=== PATIENT | male | born 1945 | race Caucasian/White ===

== ENCOUNTER 2017-11-12 11:30 | Outpatient (RCR) | payer SELFPAY | END 2017-11-13 23:59 | disposition home or self-care (01) | LOC: CR 11:30 | PROVIDERS: PCP Family Medicine; Visit Provider Family Medicine | DX: Z51.89 Encounter for other specified aftercare (principal) ==

== ENCOUNTER 2017-12-10 07:00 | Outpatient (RCR) | payer SELFPAY | END 2017-12-13 23:59 | disposition home or self-care (01) | LOC: CR 07:00 | PROVIDERS: PCP Family Medicine; Visit Provider Family Medicine | DX: Z51.89 Encounter for other specified aftercare (principal) ==

== ENCOUNTER 2018-01-06 10:15 | Outpatient (REF) | payer OTHER, SELFPAY ==
[2018-01-06 13:03] LABS: BUN 10 mg/dL (7-18); CREATININE 0.92 mg/dL (0.70-1.30); Calcium 9.3 mg/dL (8.5-10.1); Chloride 104 mmol/L (98-107); Glucose 133 mg/dL (70-100); LDL CHOLESTEROL 106 mg/dL (<100); Potassium 4.4 mmol/L (3.5-5.1); Sodium 142 mmol/L (136-145)
== END 2018-01-06 10:35 ==
LOC: NCHCN 10:15
PROVIDERS: PCP Family Medicine; Visit Provider Family Medicine
DX: I10 Essential (primary) hypertension (principal); E11.8 Type 2 diabetes mellitus with unspecified complications; Z79.4 Long term (current) use of insulin; I25.10 Atherosclerotic heart disease of native coronary artery without angina pectoris
CPT/HCPCS: 80048; 83721

== ENCOUNTER 2018-01-07 07:00 | Outpatient (RCR) | payer SELFPAY | END 2018-01-13 23:59 | disposition home or self-care (01) | LOC: CR 07:00 | PROVIDERS: PCP Family Medicine; Visit Provider Family Medicine | DX: Z51.89 Encounter for other specified aftercare (principal) ==

== ENCOUNTER 2018-02-11 07:00 | Outpatient (RCR) | payer SELFPAY | END 2018-02-12 23:59 | disposition home or self-care (01) | LOC: CR 07:00 | PROVIDERS: PCP Family Medicine; Visit Provider Family Medicine | DX: Z51.89 Encounter for other specified aftercare (principal) ==

== ENCOUNTER 2018-03-11 15:02 | Outpatient (RCR) | payer SELFPAY | END 2018-03-15 23:59 | disposition home or self-care (01) | LOC: CR 15:02 | PROVIDERS: PCP Family Medicine; Visit Provider Family Medicine | DX: Z51.89 Encounter for other specified aftercare (principal) ==

== ENCOUNTER 2018-04-15 07:00 | Outpatient (RCR) | payer SELFPAY | END 2018-04-15 23:59 | disposition home or self-care (01) | LOC: CR 07:00 | PROVIDERS: PCP Family Medicine; Visit Provider Family Medicine | DX: Z51.89 Encounter for other specified aftercare (principal) ==

== ENCOUNTER 2018-05-13 12:39 | Outpatient (RCR) | payer SELFPAY | END 2018-05-13 23:59 | disposition home or self-care (01) | LOC: CR 12:39 | PROVIDERS: PCP Family Medicine; Visit Provider Family Medicine | DX: Z51.89 Encounter for other specified aftercare (principal) ==

== ENCOUNTER 2018-06-03 18:36 | Emergency (ER) | payer MEDICARE, OTHER, SELFPAY ==
[2018-06-03 18:42] VITALS: BP 143/85; PULSE 95; RESP 16; TEMP 36.7; O2SAT 98
--- NOTE | 2018-06-03 18:55 | W.ED.GENAD ---
Discharge Plan Disposition Patient Disposition: HOME Condition: Good Discharge Details Chief Complaint: RespSymp Clinical Impression: URI, acute, Cough Primary Care Provider: Brett Yanes ED Provider: Paulo Millan Home Meds and New Rx's Prescriptions: No Action metformin 500 MG tablet 1,000 mg PO BID RF: 0 diltiazem HCl [Dilacor XR] 240 MG capsule,ext.rel 24h degradable 180 mg PO DAILY RF: 0 metoprolol tartrate 100 MG tablet 100 mg PO DAILY RF: 0 clopidogrel [Plavix] 75 MG tablet 75 mg PO BID RF: 0 fluoxetine 20 MG capsule 20 mg PO HS RF: 0 valsartan-hydrochlorothiazide [Diovan HCT] 1 EACH tablet 1 ea PO HS RF: 0 rosuvastatin [Crestor] 20 MG tablet 40 mg PO HS RF: 0 tramadol 50 MG tablet 50 mg PO BID PRNRF: 0 acetaminophen [Tylenol Arthritis Pain] 650 MG tablet extended release 650 mg PO TID PRN (Reason: Pain) RF: 0 nitroglycerin [Nitrostat] 0.4 MG tablet, sublingual 0.4 mg Sublingual Q5MIN PRN (Reason: Chest Pain) RF: 0 multivitamin 1 EACH capsule 1 ea PO DAILY RF: 0 cholecalciferol (vitamin D3) 1,000 UNITS tablet 2,000 units PO DAILY RF: 0 insulin glargine [Lantus Solostar U-100 Insulin] 100 UNIT/ML insulin pen 20 unit SQ QAM RF: 0 insulin glargine [Lantus Solostar U-100 Insulin] 100 UNIT/ML insulin pen 40 unit SQ HS RF: 0 magnesium oxide 400 MG capsule 400 mg PO DAILY RF: 0 insulin aspart U-100 [Novolog Flexpen U-100 Insulin] 100 UNIT/ML insulin pen 10 units SQ DIRECTED RF: 0 loperamide 2 MG capsule 2 mg PO DAILY RF: 0 aspirin [Aspir-81] 81 MG tablet,delayed release (DR/EC) 81 mg PO DAILY RF: 0 liraglutide [Victoza 2-Darion] 0.6 MG/0.1 ML pen injector 1.8 mg SQ DAILY RF: 0 empagliflozin [Jardiance] 25 MG tablet 25 mg PO DAILY RF: 0 Discharge Instructions Instructions: Upper Respiratory Infection (ED), Acute Cough (ED) Additional Instructions: Please use the Monique pot as directed, please use the inhaler, 2 puffs every 6 hours. Please take 2 tablespoons of honey every 6 hours for improvement of the cough. If you notice any worsening of your symptoms, or any new symptoms such as vomiting, diarrhea, fever, chills, shortness of breath, chest pain, numbness, weakness, or fainting , please return immediately to the emergency department for reevaluation. Please follow up with your primary care provider as soon as possible for reassessment and reevaluation. As always, it was a pleasure participating in your medical care today. Referrals: Brett Yanes [Primary Care Provider] - Medical Decision Making This is a pleasant 73-year-old male with a past medical history of diabetes, coronary artery disease and distant tobacco abuse in 1985 who presents today for evaluation of cough for the last 2-3 days. Patient has had mild amounts of productive brown sputum, symptoms have notably improved over the last 12 hours, and he states that he is actually feeling much better. He does have a similar sick contact at home of his as well as his son-in-law. Patient did get his flu shot. Symptoms have been greater than 48 hours and I do not think there is an indication for flu testing. With clear lung sounds, reassuring vital signs and no evidence of hypoxemia, tachypnea, sepsis, fever, or concerning lung sounds that do not think chest x-ray is indicated at this time. Patient does not want any antibiotic therapy at this time. Will recommend inhaler use, honey for antitussive component, Van pot, and close follow-up with prompt return if he has any worsening of his symptoms. I have extensively reviewed the treatment plan and discharge instructions with the patient and their family. I have addressed all patient concerns at this time. The patient and family was made aware of what symptoms to monitor for that would warrant a return to the emergency department. Discussed the plan with the patient and family, they demonstrate verbal understanding and agreement with our assessment and plan at this time. HPI General Date/Time Provider Initiated Documentation: 06/03/18 18:54. HPI Narrative: This is a pleasant 73-year-old male with a past medical history of diabetes, coronary artery disease and distant tobacco abuse who presents today for evaluation of cough for the last 2-3 days. Patient states that symptoms initially started with a runny nose and congestion, which gradually transitioned into a cough with productive mild brown sputum, patient denies any hemoptysis, fever, chills, chest pain, shortness of breath, numbness tingling or weakness. Patient denies any arm neck or shoulder pain. Denies any headache or significant neck pain. The patient has not been hospitalized recently or been on antibiotics recently. Patient denies any other complaints or associated factors. Patient does admit to a tobacco history but does not have any inhalers. He denies any other severe illicit drug use, recent surgeries or other complaints. He does have positive sick contact of his , as well as a son-in-law with similar symptoms Related Data Home Medications Medication Instructions Recorded Confirmed clopidogrel [Plavix] 75 mg PO BID 02/17/13 12/09/17 diltiazem HCl [Dilacor XR] 180 mg PO DAILY 02/17/13 12/09/17 fluoxetine 20 mg PO HS 02/17/13 12/09/17 metformin 1,000 mg PO BID 02/17/13 12/09/17 metoprolol tartrate 100 mg PO DAILY 02/17/13 12/09/17 valsartan-hydrochlorothiazide 1 ea PO HS 02/17/13 12/09/17 [Diovan HCT] rosuvastatin [Crestor] 40 mg PO HS 12/06/13 12/09/17 acetaminophen [Tylenol Arthritis 650 mg PO TID PRN 08/14/15 12/09/17 Pain] cholecalciferol (vitamin D3) 2,000 units PO DAILY 08/14/15 12/09/17 insulin glargine [Lantus Solostar 20 unit SQ QA 08/14/15 12/09/17 U-100 Insulin] insulin glargine [Lantus Solostar 40 unit SQ HS 08/14/15 12/09/17 U-100 Insulin] magnesium oxide 400 mg PO DAILY 08/14/15 12/09/17 multivitamin 1 ea PO DAILY 08/14/15 12/09/17 nitroglycerin [Nitrostat] 0.4 mg SUBLINGUAL Q5MIN PRN 08/14/15 12/09/17 tramadol 50 mg PO BID PRN 08/14/15 12/09/17 insulin aspart U-100 [Novolog 10 units SQ DIRECTED 11/30/15 12/09/17 Flexpen U-100 Insulin] loperamide 2 mg PO DAILY 12/11/15 12/09/17 aspirin [Aspir-81] 81 mg PO DAILY 07/16/17 12/09/17 empagliflozin [Jardiance] 25 mg PO DAILY 07/16/17 12/09/17 liraglutide [Victoza 2-Darion] 1.8 mg SQ DAILY 07/16/17 12/09/17 Allergies Allergy/AdvReac Type Severity Reaction Status Date / Time No Known Allergies Allergy Unverified 12/09/17 08:52 General Stated Complaint: RespSymp ANNE: 3 Review of Systems Review of Systems All systems reviewed & are unremarkable except as noted in HPI and below PFSH Social History Smoking/Tobacco Use Status: Former Tobacco Use Alcohol Intake: never Drug use: Never Do you feel safe at home: Yes Do you feel safe in your relationship?: Yes Exam Narrative Exam Narrative: 1.Const: Well-nourished, Well-developed, appearing stated age 2.Eyes: PERRL, no conjunctival injection, and symmetrical lids. 3.ENT: Atraumatic external nose and ears. Moist MM. Neck: Symmetric, trachea midline, No thyromegaly. No evidence of retropharyngeal abscess, significant erythema in the posterior oropharynx or other significant abnormality. 4.CVS: +S1/S2, No murmurs or gallops. Peripheral pulses 2+ and equal in all extremities. Brisk capillary refill in all extremities. 5.RESP: Unlabored respiratory effort. Clear to auscultation bilaterally. No wheezes rales or rhonchi, clear lung sounds throughout. 6.GI: Soft, Nontender/Nondistended, No hepatosplenomegaly. No guarding or rebound. 7.MSK: Normocephalic/Atraumatic, Extremities w/o deformity or ttp No cyanosis or clubbing, Normal movement of all extremities 8.Skin: Warm, Dry. No rashes or lesions. 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 Sensation grossly intact, no focal neurologic deficits. 10.Psych: (AAO) x3. Appropriate mood and affect Course Vital Signs Temperature 36.7 C 06/03/18 18:42 Pulse 95 H 06/03/18 18:42 Respiratory Rate 16 06/03/18 18:42 Blood Pressure 143/85 H 06/03/18 18:42 Pulse Oximetry 98 06/03/18 18:42 Temperature 36.7 C 06/03/18 18:42 Temperature Source Skin 06/03/18 18:42 Pulse 95 H 06/03/18 18:42 Respiratory Rate 16 06/03/18 18:42 Blood Pressure 143/85 H 06/03/18 18:42 Blood Pressure Position Sitting 06/03/18 18:42 Pulse Oximetry 98 06/03/18 18:42 Oxygen Delivery Method Room Air 06/03/18 18:42 Oxygen Flow Rate 0 06/03/18 18:42
[2018-06-03] MEDS: Albuterol HFA 8 GM 60 PUFF INH IH (19:04)
[2018-06-03 19:09] VITALS: BP 143/85; PULSE 95; RESP 16; TEMP 36.7; O2SAT 98
== END 2018-06-03 19:11 | disposition home or self-care (01) ==
LOC: ER 18:57
PROVIDERS: Emergency Provider Student in an Organized Health Care Education/Training Program; PCP Family Medicine
DX: J06.9 Acute upper respiratory infection, unspecified (principal); R05 Cough; E11.9 Type 2 diabetes mellitus without complications; Z87.891 Personal history of nicotine dependence; Z79.4 Long term (current) use of insulin
CPT/HCPCS: 99282

== ENCOUNTER 2018-06-10 07:00 | Outpatient (RCR) | payer SELFPAY | END 2018-06-13 23:59 | disposition home or self-care (01) | LOC: CR 07:00 | PROVIDERS: PCP Family Medicine; Visit Provider Family Medicine | DX: Z51.89 Encounter for other specified aftercare (principal) ==

== ENCOUNTER 2018-07-13 07:00 | Outpatient (RCR) | payer SELFPAY | END 2018-07-13 23:59 | disposition home or self-care (01) | LOC: CR 07:00 | PROVIDERS: PCP Family Medicine; Visit Provider Family Medicine | DX: Z51.89 Encounter for other specified aftercare (principal) ==

== ENCOUNTER 2018-08-12 07:00 | Outpatient (RCR) | payer SELFPAY | END 2018-08-13 23:59 | disposition home or self-care (01) | LOC: CR 07:00 | PROVIDERS: PCP Family Medicine; Visit Provider Family Medicine | DX: Z51.89 Encounter for other specified aftercare (principal) ==

== ENCOUNTER 2018-09-09 11:19 | Outpatient (RCR) | payer SELFPAY | END 2018-09-12 23:59 | disposition home or self-care (01) | LOC: CR 11:19 | PROVIDERS: PCP Family Medicine; Visit Provider Family Medicine | DX: Z51.89 Encounter for other specified aftercare (principal) ==

== ENCOUNTER 2018-10-12 13:25 | Outpatient (RCR) | payer SELFPAY | END 2018-10-13 23:59 | disposition home or self-care (01) | LOC: CR 13:25 | PROVIDERS: PCP Family Medicine; Visit Provider Family Medicine | DX: Z51.89 Encounter for other specified aftercare (principal) ==

== ENCOUNTER 2018-11-11 07:00 | Outpatient (RCR) | payer SELFPAY | END 2018-11-13 23:59 | disposition home or self-care (01) | LOC: CR 07:00 | PROVIDERS: PCP Family Medicine; Visit Provider Family Medicine | DX: Z51.89 Encounter for other specified aftercare (principal) ==

== ENCOUNTER 2018-12-09 11:55 | Outpatient (RCR) | payer SELFPAY | END 2018-12-13 23:59 | disposition home or self-care (01) | LOC: CR 11:55 | PROVIDERS: PCP Family Medicine; Visit Provider Family Medicine | DX: Z51.89 Encounter for other specified aftercare (principal) ==

== ENCOUNTER 2019-01-13 11:58 | Outpatient (RCR) | payer SELFPAY | END 2019-01-13 23:59 | disposition home or self-care (01) | LOC: CR 11:58 | PROVIDERS: PCP Family Medicine; Visit Provider Family Medicine | DX: Z51.89 Encounter for other specified aftercare (principal) ==

== ENCOUNTER 2019-02-08 15:12 | Outpatient (RCR) | payer SELFPAY | END 2019-02-12 23:59 | disposition home or self-care (01) | LOC: CR 15:12 | PROVIDERS: PCP Family Medicine; Visit Provider Family Medicine | DX: Z51.89 Encounter for other specified aftercare (principal) ==

== ENCOUNTER 2019-02-22 15:32 | Outpatient (REF) | payer OTHER, SELFPAY ==
[2019-02-22 19:36] LABS: HCT 44.1 % (40.0-50.0); HGB 14.9 g/dL (13.5-17.5); Mean Corp. HGB Concentration 33.8 g/dL (32.0-36.0); Mean Corpuscular Hemoglobin 32.3 pg (27.0-33.0); Mean Corpuscular Volume 95.5 fL (80-95); Mean Platelet Volume 11.9 fL (8.0-11.0); Platelet Count 238 x1000/uL (130-400); RBC 4.62 m/cumm (4.50-6.00); RBC Distribution Width 12.7 % (11.8-14.1); White Blood Cell Count 7.66 k/cumm (4.4-10.8)
[2019-02-22 19:43] LABS: Anion Gap 11.3 mmol/L (3-11); BUN 26 mg/dL (7-18); CO2 27.7 mmol/L (21.0-32.0); CREATININE 1.62 mg/dL (0.70-1.30); Calcium 9.4 mg/dL (8.5-10.1); Calculated LDL 29 mg/dL; Chloride 97 mmol/L (98-107); Cholesterol 92 mg/dL (<200); Estimated GFR 42.09 (mL/min/1.73m2); Glucose 306 mg/dL (74-106); HDL Cholesterol 35 mg/dL (40-60); Potassium 4.5 mmol/L (3.5-5.1); Sodium 136 mmol/L (136-145); Triglyceride 142 mg/dL (<150)
== END 2019-02-22 15:52 ==
LOC: NCHCN 15:32
PROVIDERS: PCP Family Medicine; Visit Provider Family Medicine
DX: I25.10 Atherosclerotic heart disease of native coronary artery without angina pectoris (principal); R19.5 Other fecal abnormalities; I10 Essential (primary) hypertension
CPT/HCPCS: 80048; 80061; 85027

== ENCOUNTER 2019-03-10 07:00 | Outpatient (RCR) | payer SELFPAY | END 2019-03-15 23:59 | disposition home or self-care (01) | LOC: CR 07:00 | PROVIDERS: PCP Family Medicine; Visit Provider Family Medicine | DX: Z51.89 Encounter for other specified aftercare (principal) ==

== ENCOUNTER 2019-03-22 10:27 | Outpatient (REF) | payer OTHER, SELFPAY ==
[2019-03-22 19:42] LABS: Anion Gap 7.5 mmol/L (3-11); BUN 19 mg/dL (7-18); CO2 31.5 mmol/L (21.0-32.0); CREATININE 1.23 mg/dL (0.70-1.30); Calcium 9.8 mg/dL (8.5-10.1); Chloride 102 mmol/L (98-107); Estimated GFR 57.84 (mL/min/1.73m2); Glucose 128 mg/dL (74-106); Sodium 141 mmol/L (136-145)
== END 2019-03-22 10:47 ==
LOC: NCHCN 10:27
PROVIDERS: PCP Family Medicine; Visit Provider Family Medicine
DX: N28.9 Disorder of kidney and ureter, unspecified (principal)
CPT/HCPCS: 80048

== ENCOUNTER 2019-04-08 06:55 | Day surgery (SDC) | payer OTHER, SELFPAY ==
[2019-04-08 07:19] VITALS: BP 138/71; PULSE 59; RESP 18; TEMP 36.6; O2SAT 98
[2019-04-08] MEDS: Lactated Ringers 1,000 ML 80 ML IV (07:29)
--- NOTE | 2019-04-08 08:30 | BOWEL_PTH ---
PATIENT: Gavino Nelson JR LOC: [facility] U#:[id number] AGE/SX: 74/M ROOM: RE04/08/[address]: Josefina Curran MD : [id number] BED: DIS: 04/08/2019 SPEC #: [id number] RECD: 04/08/19 12:46 STATUS: LAMBERTO REQ #: [id number] ANIKET: 04/08/19 08:[address]: Josefina Curran DEPT: Surgical Specimen RECD BY: Elmira Pace ENTERED: 04/08/19 12:48 SP TYPE: Bowel OTHR DR: Brett Yanes Tissues: 1 - BIOPSY BOWEL 2 - BIOPSY BOWEL Procedures: GROSS AND MICRO LEVEL 4 Comments: [id number]
--- NOTE | 2019-04-08 08:41 | PDOC.DSDIS_ITS ---
Discharge Plan Disposition Patient Disposition: HOME Condition: Good Discharge Details Reason For Visit: colonoscopy Attending Provider: Josefina Curran Primary Care Provider: Brett Yanes [place] Meds and New Rx's Prescriptions: Continued metoprolol succinate 100 mg tablet extended release 24 hr 100 mg PO DAILY RF: 0 metformin 500 mg tablet 500 mg PO BID RF: 0 candesartan-hydrochlorothiazid 16-12.5 mg tablet 1 tab PO DAILY RF: 0 diltiazem HCl [Dilacor XR] 240 MG capsule,ext.rel 24h degradable 180 mg PO DAILY RF: 0 clopidogrel [Plavix] 75 MG tablet 75 mg PO BID RF: 0 fluoxetine 20 MG capsule 20 mg PO HS RF: 0 rosuvastatin [Crestor] 20 MG tablet 40 mg PO HS RF: 0 tramadol 50 MG tablet 50 mg PO BID PRNRF: 0 acetaminophen [Tylenol Arthritis Pain] 650 MG tablet extended release 650 mg PO TID PRN (Reason: Pain) RF: 0 nitroglycerin [Nitrostat] 0.4 MG tablet, sublingual 0.4 mg Sublingual Q5MIN PRN (Reason: Chest Pain) RF: 0 multivitamin 1 EACH capsule 1 ea PO DAILY RF: 0 cholecalciferol (vitamin D3) 1,000 UNITS tablet 2,000 units PO DAILY RF: 0 Lantus Solostar U-100 Insulin 100 UNIT/ML insulin pen 20 unit SQ QAM RF: 0 Lantus Solostar U-100 Insulin 100 UNIT/ML insulin pen 40 unit SQ HS RF: 0 magnesium oxide 400 MG capsule 400 mg PO DAILY RF: 0 insulin aspart U-100 [Novolog Flexpen U-100 Insulin] 100 UNIT/ML insulin pen 10 units SQ DIRECTED RF: 0 Victoza 2-Darion 0.6 MG/0.1 ML pen injector 1.8 mg SQ DAILY RF: 0 Jardiance 25 MG tablet 25 mg PO DAILY RF: 0 Discontinued polyethylene glycol 3350 17 gram/dose powder 238 g PO ONCE Qty: 238 RF: 0 bisacodyl [Dulcolax (bisacodyl)] 5 mg tablet,delayed release (DR/EC) 5 mg PO ONCE Qty: 4 RF: 0 Discharge Instructions Additional Instructions: Findings: Two small polyps were removed. My office will contact you with results. Follow up: Plan for a colonoscopy in five years if the polyp is adenomatous. The blood in your stool is most likely from hemorrhoids. Please call if you develop: fevers >101.5 Nausea or Vomiting Abdominal pain that is not transient DAY SURGERY UNIT POST COLONOSCOPY INSTRUCTIONS 1. Because there will be medication in your system for the next 24 hours, you may feel a little sleepy. Your coordination will be affected. Therefore: a. Do not drive or operate dangerous equipment for 24 hours. b. Do not drink alcohol beverages for 24 hours (not even beer). c. Plan to go home and rest for the day. 2. Generally there are no restrictions on your activity after a day or so has gone by, but you may feel a bit fatigued for a few days. 3 After you arrive home you may have a light meal and return to a normal diet as you can tolerate it without feeling sick to your stomach. 4. After surgery, you may feel pain or discomfort. This should be only transient, but if it persists please contact your doctor. 5. If there are any questions regarding the findings of your procedure, please feel free to contact your doctor. 6. If you are unable to contact your doctor with a problem, contact the hospital at [phone]. 7. Continue all your regular medications unless directed otherwise. I understand the above instructions and have no questions. Signature of Patient or Responsible Adult Escort Date/Time Name of Responsible Adult Escort Signature of Nurse Date/Time Activity:: Activity as Tolerated Diet:: As Tolerated Discharge Orders Discharge Orders: Discharge Order (Routine); Ordered 04/08/19 Ordered By: Josefina Curran DS: Diagnosis Discharge Diagnosis (1) Colon polyps: Status: Acute (2) Diverticulosis: Status: Acute
[2019-04-08 09:10] VITALS: BP 148/72; PULSE 60; RESP 16; TEMP 36.6; O2SAT 97
--- NOTE | 2019-04-11 09:31 | COLE_ITS ---
DATE OF PROCEDURE: April 08, 2019 PREOPERATIVE DIAGNOSIS: Hemoccult-positive stool. POSTOPERATIVE DIAGNOSIS: 1. Diverticulosis. 2. Colon polyps. PROCEDURE: Colonoscopy with cold forceps polypectomy. SURGEON: Josefina Curran M.D. ANESTHESIA: General. INDICATIONS: This is a 74-year-old man who was noted to have hemoccult-positive stool on routine scr eening. He had no visible blood in his stool. He does take Plavix. He is otherwise asymptomatic. He denies a family history of colon cancer. His last colonoscopy was several years ago per his repor t. PROCEDURE: The patient was placed in the left Jose position. Propofol was titrated to sedation. Di gital rectal examination revealed no abnormalities. The scope was advanced to the cecum without diff iculty. The ileocecal valve and appendiceal orifice were clearly identified. His prep was good. Th e scope was slowly withdrawn with no abnormalities seen within the ascending or transverse colon. In the descending colon there was an approximately 6 mm polyp that was removed with several bites of th e cold forceps and sent to pathology. He was noted to have a moderate amount of sigmoid diverticulos is. In the rectum there was a < 1 cm polyp that was removed with cold forceps and sent to pathology. This appeared hyperplastic. The rectum showed evidence of moderately prominent internal hemorrhoid s on retroflexion, which may be the source of his hemoccult-positive stool. He tolerated the procedu re well and was stable to recovery. If the polyps are adenomatous, he will need a follow-up colonoscopy in five years. cc: Brett Yanes M.D.
== END 2019-04-08 09:27 | disposition home or self-care (01) ==
PROVIDERS: PCP Family Medicine; Visit Provider Surgery
PROC: 0DJD8ZZ Inspection of Lower Intestinal Tract, Via Natural or Artificial Opening Endoscopic (ICD-10-PCS; CPT 45378; principal; 2019-04-08 08:15)
DX: Z12.11 Encounter for screening for malignant neoplasm of colon (principal); R19.5 Other fecal abnormalities; D12.4 Benign neoplasm of descending colon; D12.8 Benign neoplasm of rectum; K57.30 Diverticulosis of large intestine without perforation or abscess without bleeding; K64.0 First degree hemorrhoids; I10 Essential (primary) hypertension; E11.9 Type 2 diabetes mellitus without complications; Z79.4 Long term (current) use of insulin; G47.33 Obstructive sleep apnea (adult) (pediatric)
CPT/HCPCS: 45380; 88305; J2001; J2250; J2704; J3010

== ENCOUNTER 2019-04-14 07:00 | Outpatient (RCR) | payer SELFPAY | END 2019-04-15 23:59 | disposition home or self-care (01) | LOC: CR 07:00 | PROVIDERS: PCP Family Medicine; Visit Provider Family Medicine | DX: Z51.89 Encounter for other specified aftercare (principal) ==

== ENCOUNTER 2019-05-10 07:00 | Outpatient (RCR) | payer SELFPAY | END 2019-05-14 23:59 | disposition home or self-care (01) | LOC: CR 07:00 | PROVIDERS: PCP Family Medicine; Visit Provider Family Medicine | DX: Z51.89 Encounter for other specified aftercare (principal) ==

== ENCOUNTER 2019-05-24 07:00 | Outpatient (RCR) | payer SELFPAY | END 2019-06-14 23:59 | disposition home or self-care (01) | LOC: CR 07:00 | PROVIDERS: PCP Family Medicine; Visit Provider Family Medicine | DX: Z51.89 Encounter for other specified aftercare (principal) ==

== ENCOUNTER 2019-08-13 12:05 | Emergency (ER) | payer OTHER, SELFPAY ==
[2019-08-13 12:09] VITALS: BP 149/81; PULSE 87; RESP 16; TEMP 36.6; O2SAT 95
--- NOTE | 2019-08-13 12:09 | ED.GENADUL_ITS ---
Discharge Plan Disposition Patient Disposition: HOME Condition: Stable Discharge Details Chief Complaint: Laceration Clinical Impression: Laceration of thumb Primary Care Provider: Brett Yanes ED Provider: Rose Allen Home Meds and New Rx's Prescriptions: New cephalexin [Keflex] 500 mg capsule 500 mg PO QID 7 Days Qty: 28 RF: 0 Continued metoprolol succinate 100 mg tablet extended release 24 hr 100 mg PO DAILY RF: 0 metformin 500 mg tablet 500 mg PO BID RF: 0 candesartan-hydrochlorothiazid 16-12.5 mg tablet 1 tab PO DAILY RF: 0 diltiazem HCl [Dilacor XR] 240 MG capsule,ext.rel 24h degradable 180 mg PO DAILY RF: 0 clopidogrel [Plavix] 75 MG tablet 75 mg PO BID RF: 0 fluoxetine 20 MG capsule 20 mg PO HS RF: 0 rosuvastatin [Crestor] 20 MG tablet 40 mg PO HS RF: 0 tramadol 50 MG tablet 50 mg PO BID PRNRF: 0 acetaminophen [Tylenol Arthritis Pain] 650 MG tablet extended release 650 mg PO TID PRN (Reason: Pain) RF: 0 nitroglycerin [Nitrostat] 0.4 MG tablet, sublingual 0.4 mg Sublingual Q5MIN PRN (Reason: Chest Pain) RF: 0 multivitamin 1 EACH capsule 1 ea PO DAILY RF: 0 cholecalciferol (vitamin D3) 1,000 UNITS tablet 2,000 units PO DAILY RF: 0 Lantus Solostar U-100 Insulin 100 UNIT/ML insulin pen 20 unit SQ QAM RF: 0 Lantus Solostar U-100 Insulin 100 UNIT/ML insulin pen 40 unit SQ HS RF: 0 magnesium oxide 400 MG capsule 400 mg PO DAILY RF: 0 insulin aspart U-100 [Novolog Flexpen U-100 Insulin] 100 UNIT/ML insulin pen 10 units SQ DIRECTED RF: 0 Victoza 2-Darion 0.6 MG/0.1 ML pen injector 1.8 mg SQ DAILY RF: 0 Jardiance 25 MG tablet 25 mg PO DAILY RF: 0 Discharge Instructions Instructions: Laceration (ED) Additional Instructions: Keep wound clean and dry. If risk of contamination or injury, cover wound with bandage. If you notice any local redness, swelling or pain, apply topical antibiotic ointment. Otherwise keep the wound open to air to allow the edges to heal and dry. Take the antibiotics until finished. Take Tylenol as needed and directed for pain. Return to the emergency department or follow-up with your primary care doctor in 1 week for suture removal. Return to the emergency department at any time if you develop any fever, significant pain, redness or swelling of finger. Discharge Data Discharge Physician: Rose Allen Medical Decision Making 2cm straight laceration w/ lateral flap of 1cm noted on palmar aspect of R distal thumb pad sustained after lifting a bag of garbage from inside his house 3 hours ago at home. Denies any known exposure to needles or other infected material. States it was likely glass. Tetanus up-to-date 2017. Wound irrigated and soaked. 4 sutures placed. Wound covered with antibiotic ointment and dressing. As patient has a history of diabetes, will cover with antibiotics prophylactically. Advised to return to the ER in 7 days for suture removal. Usual and customary return precautions given prior to discharge. Medical Records Medical records reviewed: Yes I reviewed the patient's medical records. HPI General Mode of arrival: ambulatory . Date/Time Provider Initiated Documentation: 08/13/19 12:07 . Limitations to Documentation: no limitations . Information obtained by: patient . History of Present Illness 74 year old M presents to the emergency department with the chief complaint of R thumb laceration after lifting bag of garbage from inside his house, and is localized to the right and upper extremity (thumb). Patient started experiencing this hour(s) (3) and it has been constant. No relieving factors improve symptom(s), Movement worsens symptoms . Patient notes no other symptoms.. Patient did receive the following treatments prior to arrival, none Related Data Home Medications Medication Instructions Recorded Confirmed clopidogrel [Plavix] 75 mg PO BID 02/17/13 08/13/19 diltiazem HCl [Dilacor XR] 180 mg PO DAILY 02/17/13 08/13/19 fluoxetine 20 mg PO HS 02/17/13 08/13/19 rosuvastatin [Crestor] 40 mg PO HS 12/06/13 08/13/19 Lantus Solostar U-100 Insulin 20 unit SQ QAM 08/14/15 08/13/19 Lantus Solostar U-100 Insulin 40 unit SQ HS 08/14/15 08/13/19 acetaminophen [Tylenol Arthritis 650 mg PO TID PRN 08/14/15 08/13/19 Pain] cholecalciferol (vitamin D3) 2,000 units PO DAILY 08/14/15 08/13/19 magnesium oxide 400 mg PO DAILY 08/14/15 08/13/19 multivitamin 1 ea PO DAILY 08/14/15 08/13/19 nitroglycerin [Nitrostat] 0.4 mg SUBLINGUAL Q5MIN PRN 08/14/15 08/13/19 tramadol 50 mg PO BID PRN 08/14/15 08/13/19 insulin aspart U-100 [Novolog 10 units SQ DIRECTED 11/30/15 08/13/19 Flexpen U-100 Insulin] Jardiance 25 mg PO DAILY 07/16/17 08/13/19 Victoza 2-Darion 1.8 mg SQ DAILY 07/16/17 08/13/19 candesartan 16 1 tab PO DAILY 03/07/19 08/13/19 mg-hydrochlorothiazide 12.5 mg tablet metformin 500 mg tablet 500 mg PO BID tab 03/07/19 08/13/19 metoprolol succinate 100 mg 100 mg PO DAILY 03/07/19 08/13/19 tablet,extended release 24 hr cephalexin [Keflex] 500 mg PO QID 7 Days #28 cap 08/13/19 Previous Rx's Medication Instructions Recorded cephalexin [Keflex] 500 mg PO QID 7 Days #28 cap 08/13/19 Allergies Allergy/AdvReac Type Severity Reaction Status Date / Time No Known Allergies Allergy Unverified 04/08/19 07:14 General ANNE: 3 Review of Systems All systems reviewed & are unremarkable except as noted in HPI and below PFS Medical History (Updated 08/13/19 @ 13:00 by Rose Allen DO) Anxiety (Chronic) CAD (coronary artery disease) (Chronic) Cataract (Chronic) CVA (cerebral vascular accident) (Chronic) 1996 Depression (Chronic) Diabetes mellitus type 2, insulin dependent (Acute) Diabetic neuropathy (Acute) DJD (degenerative joint disease) (Chronic) Hyperlipidemia (Acute) Hypertension (Chronic) LIN (obstructive sleep apnea) (Chronic) pt. states he no longer has this as he has lost a lot of weight per pt. Right leg weakness (Acute) pt. denies this Vitamin D deficiency (Acute) Surgical History (Updated 02/04/20 @ 08:44 by Paula Akins RN) History of cataract surgery (Chronic) History of colonoscopy (Chronic ~03/2019) mar 2019, Dr. Curran, adenomatous polyp History of hip replacement (Chronic) Social History Smoking/Tobacco Use Status: Former Tobacco Use Quit Date: 03/16/85 Alcohol Intake: never Drug use: Never Substance use type: does not use Do you feel safe at home: Yes Do you feel safe in your relationship?: Yes Exam Const General: cooperative, healthy appearing and no acute distress HENMT Head: normal to inspection Mouth: oral mucosae normal Eyes General: appearance normal, both eyes and all related structures Neck Neck: normal visual inspection Resp Effort & Inspection: normal respiratory effort and able to speak in complete sentences Cardio Rate: regular rate Skin General skin exam: no rashes or lesions noted Neuro General: patient alert, patient awake and patient oriented x3 Motor: muscle tone normal throughout Extrem Right upper extremity: hand Details: laceration (2cm straight laceration with a 1cm flap on lateral aspect) thumb palmar aspect distal Psych Appearance: grossly normal Affect: normal affect Procedures Laceration Laceration 1: Site: hand (thumb) Side (If applicable): right Size (cm): 2 Description: linear Depth: simple, single layer Local Anesthetic: Lidocaine 1% Amount of anesthesia used (mL): 4 Pre-repair: wound explored, irrigated extensively and deep structures intact Skin layer closed with: nylon Size (cm): 5-0 Number of sutures: 4 Technique: simple, interrupted
== END 2019-08-13 13:30 | disposition home or self-care (01) ==
PROVIDERS: Emergency Provider Physician Assistant; PCP Family Medicine
DX: S61.011A Laceration without foreign body of right thumb without damage to nail, initial encounter (principal); E11.9 Type 2 diabetes mellitus without complications; Z79.4 Long term (current) use of insulin; I10 Essential (primary) hypertension
CPT/HCPCS: 12001

== ENCOUNTER 2020-02-21 11:21 | Outpatient (REF) | payer OTHER, SELFPAY ==
[2020-02-21 18:08] LABS: Anion Gap 5.6 mmol/L (3-11); BUN 21 mg/dL (7-18); CO2 29.4 mmol/L (21.0-32.0); CREATININE 1.43 mg/dL (0.70-1.30); Calcium 9.5 mg/dL (8.5-10.1); Chloride 104 mmol/L (98-107); Estimated GFR 48.48 (mL/min/1.73m2); Glucose 147 mg/dL (74-106); Magnesium 2.1 mg/dL (1.8-2.4); Potassium 4.4 mmol/L (3.5-5.1); Sodium 139 mmol/L (136-145)
== END 2020-02-21 11:41 ==
LOC: NCHCN 11:21
PROVIDERS: PCP Family Medicine; Visit Provider Family Medicine
DX: I25.10 Atherosclerotic heart disease of native coronary artery without angina pectoris (principal); E11.8 Type 2 diabetes mellitus with unspecified complications; Z79.4 Long term (current) use of insulin
CPT/HCPCS: 80048; 83735

== ENCOUNTER 2020-08-20 16:52 | Outpatient (REF) | payer OTHER, SELFPAY ==
[2020-08-20 16:11] LABS: Anion Gap 10.2 mmol/L (3-11); BUN 26 mg/dL (7-18); CO2 26.8 mmol/L (21.0-32.0); CREATININE 1.4 mg/dL (0.70-1.30); Calcium 9.2 mg/dL (8.5-10.1); Chloride 104 mmol/L (98-107); Estimated GFR 49.68 (mL/min/1.73m2); Glucose 127 mg/dL (74-106); Potassium 4.3 mmol/L (3.5-5.1); Sodium 141 mmol/L (136-145)
== END 2020-08-20 16:53 | disposition home or self-care (01) ==
LOC: NCHCN 16:52
PROVIDERS: PCP Family Medicine; Visit Provider Family Medicine
DX: E11.22 Type 2 diabetes mellitus with diabetic chronic kidney disease (principal); N39.0 Urinary tract infection, site not specified
CPT/HCPCS: 80048; 87077; 87086; 87186

== ENCOUNTER 2020-09-11 08:00 | Outpatient (RCR) | payer SELFPAY ==
[2020-08-14 15:50] VITALS: BP 133/76; PULSE 58
[2020-08-16 07:55] VITALS: BP 131/73; PULSE 69; O2SAT 98
[2020-08-21 08:00] VITALS: BP 116/64; PULSE 64
[2020-08-23 07:59] VITALS: BP 125/69; PULSE 65
[2020-08-30 07:55] VITALS: BP 159/66; PULSE 50
[2020-09-04 07:58] VITALS: BP 151/84; PULSE 68
[2020-09-06 08:03] VITALS: BP 134/86; PULSE 63
[2020-09-11 08:04] VITALS: BP 119/81; PULSE 64
== END 2020-09-12 23:59 | disposition home or self-care (01) ==
LOC: CR 08:00
PROVIDERS: PCP Family Medicine; Visit Provider Family Medicine
DX: Z51.89 Encounter for other specified aftercare (principal)

== ENCOUNTER 2020-10-11 08:00 | Outpatient (RCR) | payer OTHER, SELFPAY ==
[2020-09-13 00:11] VITALS: BP 119/81; PULSE 64
[2020-09-13 08:05] VITALS: BP 144/78; PULSE 69
[2020-09-18 07:53] VITALS: BP 143/74; PULSE 67; O2SAT 98
[2020-09-20 08:03] VITALS: BP 127/69
[2020-09-25 08:08] VITALS: BP 128/75; PULSE 76
[2020-10-02 08:06] VITALS: BP 140/77; PULSE 84
[2020-10-04 08:10] VITALS: BP 108/61; PULSE 54
[2020-10-09 08:00] VITALS: BP 127/75; PULSE 51
[2020-10-11 07:55] VITALS: BP 130/59; PULSE 52
== END 2020-10-13 23:59 | disposition home or self-care (01) ==
LOC: CR 08:00
PROVIDERS: PCP Family Medicine; Visit Provider Family Medicine
DX: Z51.89 Encounter for other specified aftercare (principal)

== ENCOUNTER 2020-10-13 17:51 | Emergency (ER) | payer OTHER, SELFPAY ==
[2020-10-13 17:58] VITALS: BP 109/58; PULSE 77; TEMP 36.8; O2SAT 98
[2020-10-13 18:21] LABS: Bilirubin Negative (Negative); Blood Moderate (Negative); Clarity Cloudy (Clear); Glucose >=1000 mg/dL (Negative); Ketones Negative (Negative); Leukocyte Esterase Moderate (Negative); Nitrite Negative (Negative); Specific Gravity 1.015 (1.005-1.025); Urobilinogen 0.2 EU/dL (Up TO 0.2)
--- NOTE | 2020-10-13 18:25 | ED.GENADUL_ITS ---
Discharge Plan Disposition Patient Disposition: HOME Condition: Stable Discharge Details Clinical Impression: UTI (urinary tract infection) Primary Care Provider: Brett Yanes ED Provider: Rose Allen Home Meds and New Rx's Prescriptions: New cephalexin 500 mg capsule 500 mg PO QID 9 Days Qty: 36 RF: 0 Continued metoprolol succinate 100 mg tablet extended release 24 hr 100 mg PO DAILY RF: 0 metformin 500 mg tablet 1,000 mg PO BID RF: 0 candesartan-hydrochlorothiazid 16-12.5 mg tablet 1 tab PO DAILY RF: 0 clopidogrel [Plavix] 75 MG tablet 75 mg PO BID RF: 0 fluoxetine 20 MG capsule 20 mg PO HS RF: 0 rosuvastatin [Crestor] 20 MG tablet 40 mg PO HS RF: 0 tramadol 50 MG tablet 50 mg PO BID PRNRF: 0 acetaminophen [Tylenol Arthritis Pain] 650 MG tablet extended release 650 mg PO TID PRN (Reason: Pain) RF: 0 nitroglycerin [Nitrostat] 0.4 MG tablet, sublingual 0.4 mg Sublingual Q5MIN PRN (Reason: Chest Pain) RF: 0 cholecalciferol (vitamin D3) 1,000 UNITS tablet 2,000 units PO DAILY RF: 0 Lantus Solostar U-100 Insulin 100 UNIT/ML insulin pen 40 unit SQ HS RF: 0 magnesium oxide 400 MG capsule 400 mg PO DAILY RF: 0 insulin aspart U-100 [Novolog Flexpen U-100 Insulin] 100 UNIT/ML insulin pen 8 units SQ QAM RF: 0 trazodone 50 mg Tablet 50 mg PO QHS PRNRF: 0 diltiazem HCl 120 mg capsule,extended release 24 hr 120 mg PO DAILY RF: 0 insulin aspart U-100 100 unit/mL (3 mL) Insulin Pen 15 unit SUBCUT BID RF: 0 Victoza 2-Darion 0.6 MG/0.1 ML pen injector 1.8 mg SQ DAILY RF: 0 Jardiance 25 MG tablet 25 mg PO DAILY RF: 0 Discharge Instructions Instructions: Urinary Tract Infection in Men (ED) Additional Instructions: Drink plenty of fluids and get plenty of rest. Your prescription has been sent electronically to your pharmacy. Call the pharmacy to make sure your prescription is ready before pickup. Take the prescription as directed. Call urologist Dr. Newton's office on Dominic morning to schedule a follow-up appointment for reevaluation. Return immediately to the emergency department if you develop any worsening or new concerning symptoms such as fever, vomiting, abdominal or back pain or any other concerns. Referrals: Cosme Newton MD [ [facility] STAFF PHYSICIAN] - Discharge Data Discharge Date/Time-TO BE ENTERED AT DEPARTURE: 10/13/20 20:20 Discharge Physician: Rose Allen Medical Decision Making 75-year-old male with a history of anxiety, hyperlipidemia, hypertension, diabetes, coronary artery disease presents for concern for UTI. He was treated for UTI 1 month ago. Urine culture noted it was resistant to ampicillin but sensitive to all other antibiotics. He appears nontoxic. As he denies pain and abdomen is nontender, do not see an indication for imaging. Screening labs obtained considering his age and recent UTI and note slight worsening of his CKD but normal white count. UA notes > 50 wbc and moderate leukocyte esterase. He is unsure of the antibiotic he took last month. Will treat with keflex as his urine culture was sensitive to cephalosporins. He was given a dose here and script sent. He was placed on urology f/u list for recurrent uti. He is comfortable with plan and appears in no acute distress. Usual and customary return precautions given prior to discharge. Medical Records Medical records reviewed: Yes I reviewed the patient's medical records. Lab Data Lab results reviewed: Yes I reviewed the patient's lab results. Labs: 10/13/20 18:00 Urine - Reflex from Ua Urine Culture - Final Group B Streptococcus Laboratory Tests Range/Units 10/13/20 10/13/20 10/13/20 18:00 18:58 18:58 WBC (4.4-10.8) 10^3/uL 8.10 RBC (4.36-5.78) 10^6/uL 4.56 Hgb (13.5-17.5) g/dL 14.9 Hct (40.0-50.0) % 44.2 MCV (80-95) fL 96.9 H MCH (27.0-33.0) pg 32.7 MCHC (32.0-36.0) % 33.7 RDW (11.8-14.1) % 12.5 Plt Count (130-400) 10^3/uL 293 MPV (8.0-11.0) fL 9.9 Immature Gran % 0.4 Neutrophils % 67.6 Lymphocytes % 21.9 Monocytes % 8.4 Eosinophils % 1.1 Basophils % 0.6 Nucleated RBC % % 0 Absolute Neutrophils (1.2-6.7) 10^3/uL 5.48 Absolute Lymphocytes (1.2-3.4) 10^3/uL 1.77 Absolute Monocytes (0.1-0.8) 10^3/uL 0.68 Absolute Eosinophils (0.0-0.7) 10^3/uL 0.09 Absolute Basophils (0.0-0.2) 10^3/uL 0.05 Sodium (136-145) mmol/L 139 Potassium (3.5-5.1) mmol/L 4.3 Chloride (98-107) mmol/L 100 Carbon Dioxide (21.0-32.0) mmol/L 31.2 Anion Gap (3-11) mmol/L 7.8 BUN (7-18) mg/dL 27 H Creatinine (0.70-1.30) mg/dL 1.9 H Estimated GFR/1.73 m2 (mL/min/1.73m2) 34.92 Glucose (74-106) mg/dL 158 H Calcium (8.5-10.1) mg/dL 9.7 Total Bilirubin (0.2-1.0) mg/dL 0.6 AST (15-37) U/L 17 ALT (16-63) U/L 25 Alkaline Phosphatase (46-116) U/L 87 Total Protein (6.4-8.2) g/dL 8.7 H Albumin (3.4-5.0) g/dL 3.9 Urine Color (Yellow) Yellow Urine Clarity (Clear) Cloudy Urine pH (5-8) 7.0 Ur Specific Mart (1.005-1.025) 1.015 Urine Protein (Negative) mg/dL 100 H Urine Ketones (Negative) mg/dL Negative Urine Blood (Negative) Moderate H Urine Nitrite (Negative) Negative Urine Bilirubin (Negative) Negative Urine Urobilinogen (Up TO 0.2) EU/dL 0.2 Ur Leukocyte Esterase (Negative) Moderate H Urine RBC (0-2) HPF Urine WBC (0-5) HPF >50 H Ur Epithelial Cells Not Applicable Urine Crystals Not Applicable Urine Bacteria Not Applicable Urine Mucus Not Applicable Ur Culture Indicated? Yes Urine Glucose (Negative) mg/dL >=1000 H HPI General Mode of arrival: ambulatory . Date/Time Provider Initiated Documentation: 10/13/20 18:19 . Limitations to Documentation: no limitations . Information obtained by: patient . HPI Narrative: Patient is a 75-year-old male with a history of coronary artery disease, CVA, depression, diabetes, hypertension, hyperlipidemia, obstructive sleep apnea presents for concern for UTI for the past 2 days. Patient states he was treated with an antibiotic for a UTI 1 month ago and his symptoms completely resolved until 3 days ago. Patient states he has urinary frequency, urgency, dysuria with cloudy urine consistent with his previous UTI. He denies any fever, vomiting, abdominal or back pain. Patient states he is unsure which antibiotic he took last month. Related Data Home Medications Medication Instructions Recorded Confirmed clopidogrel [Plavix] 75 mg PO BID 02/17/13 08/23/20 fluoxetine 20 mg PO HS 02/17/13 08/23/20 rosuvastatin [Crestor] 40 mg PO HS 12/06/13 08/23/20 Lantus Solostar U-100 Insulin 40 unit SQ HS 08/14/15 08/23/20 acetaminophen [Tylenol Arthritis 650 mg PO TID PRN 08/14/15 08/13/19 Pain] cholecalciferol (vitamin D3) 2,000 units PO DAILY 08/14/15 08/23/20 magnesium oxide 400 mg PO DAILY 08/14/15 08/23/20 nitroglycerin [Nitrostat] 0.4 mg SUBLINGUAL Q5MIN PRN 08/14/15 08/23/20 tramadol 50 mg PO BID PRN 08/14/15 08/23/20 insulin aspart U-100 [Novolog 8 units SQ QAM 11/30/15 08/23/20 Flexpen U-100 Insulin] Jardiance 25 mg PO DAILY 07/16/17 08/23/20 Victoza 2-Darion 1.8 mg SQ DAILY 07/16/17 08/23/20 candesartan 16 1 tab PO DAILY 03/07/19 08/23/20 mg-hydrochlorothiazide 12.5 mg tablet metformin 500 mg tablet 1,000 mg PO BID tab 03/07/19 08/23/20 metoprolol succinate 100 mg 100 mg PO DAILY 03/07/19 08/23/20 tablet,extended release 24 hr diltiazem HCl 120 mg PO DAILY 08/23/20 08/23/20 insulin aspart U-100 15 unit SUBCUT BID 08/23/20 08/23/20 trazodone 50 mg PO QHS PRN 08/23/20 08/23/20 cephalexin 500 mg PO QID 9 Days #36 cap 10/13/20 Previous Rx's Medication Instructions Recorded cephalexin 500 mg PO QID 9 Days #36 cap 10/13/20 Allergies Allergy/AdvReac Type Severity Reaction Status Date / Time No Known Allergies Allergy Unverified 10/13/20 18:05 General Stated Complaint: Urinary ANNE: 3 Review of Systems All systems reviewed & are unremarkable except as noted in HPI and below Constitutional Constitutional: Reports as per HPI, Denies chills and Denies fever(s) Eyes Eyes: Denies blurry vision ENT Ears, Nose, Mouth, and Throat: Denies dizziness, Denies sore throat and Denies throat swelling Cardiovascular Cardiovascular: Denies chest pain and Denies dyspnea Respiratory Respiratory: Denies cough and Denies dyspnea Gastrointestinal Gastrointestinal: Denies abdominal pain, Denies diarrhea and Denies vomiting Genitourinary Genitourinary: Denies hematuria, Reports dysuria and Reports urinary frequency Musculoskeletal Musculoskeletal: Denies back pain and Denies numbness Integumentary/Breasts Skin/Breast: Denies lesions and Denies rash Neurologic Neurologic: Denies dizziness, Denies localized weakness and Denies numbness Allergic/Immunologic Allergic/Immunologic: Denies throat swelling PENDING SALE TO [facility] Medical History (Updated 10/13/20 @ 19:53 by Rose Allen DO) Anxiety CAD (coronary artery disease) Cataract CVA (cerebral vascular accident) 1996 Depression Diabetes mellitus type 2, insulin dependent Diabetic neuropathy DJD (degenerative joint disease) Hyperlipidemia Hypertension LIN (obstructive sleep apnea) pt. states he no longer has this as he has lost a lot of weight per pt. Right leg weakness pt. denies this Vitamin D deficiency Surgical History (Updated 04/19/19 @ 08:44 by Paula Akins RN) History of cataract surgery History of colonoscopy (~03/2019) mar 2019, Dr. Curran, adenomatous polyp History of hip replacement Social History Smoking/Tobacco Use Status: Former Tobacco Use Quit Date: 03/16/85 Smoking risk assessment performed?: Yes Alcohol Intake: never Drug use: Never Substance use type: does not use Do you feel safe at home: Yes Do you feel safe in your relationship?: Yes Exam Const General: cooperative and no acute distress HENMT Head: normal to inspection Face and sinus: normal facial exam Eyes General: appearance normal, both eyes and all related structures EOM: EOM intact bilaterally Neck Neck: normal visual inspection and No submandibular swelling Lymphatic: no lymphadenopathy noted Chest Chest: normal inspection of the chest and no tenderness Resp Effort & Inspection: normal respiratory effort and able to speak in complete sentences Auscultation: clear to auscultation bilaterally Cardio Rate: regular rate Rhythm: regular rhythm GI Inspection: normal to inspection Palpation: soft, not firm, not rigid and nontender Auscultation: normal bowel sounds Skin General skin exam: no rashes or lesions noted Neuro General: patient alert, patient awake and patient oriented x3 Cognition: normal cognition Speech: speech normal Motor: muscle tone normal throughout Sensory Exam: no sensory deficits noted Extrem General: normal to inspection, full ROM, capillary refill normal, no calf tenderness bilaterally and no edema Psych Appearance: grossly normal Mental Status: mental status grossly normal Speech and Movement: speech and movement normal Affect: normal affect Course Vital Signs Vital signs: Vital Signs Temperature 98.2 F 10/13/20 17:58 Pulse 77 10/13/20 17:58 Blood Pressure 109/58 L 10/13/20 17:58 Pulse Oximetry 98 10/13/20 17:58 Temperature 98.2 F 10/13/20 17:58 Temperature Source Temporal Artery Scan 10/13/20 17:58 Pulse 77 10/13/20 17:58 Respiratory Effort Non-Labored 10/13/20 18:04 Blood Pressure 109/58 L 10/13/20 17:58 Blood Pressure Position Sitting 10/13/20 17:58 Pulse Oximetry 98 10/13/20 17:58 Oxygen Delivery Method Room Air 10/13/20 17:58 Oxygen Flow Rate 0 10/13/20 17:58 Pain Level 2 10/13/20 18:05 Lab/Test Results Lab/Test Results: Laboratory Tests Range/Units 10/13/20 18:00 Urine Color (Yellow) Yellow Urine Clarity (Clear) Cloudy Urine pH (5-8) 7.0 Ur Specific Mart (1.005-1.025) 1.015 Urine Protein (Negative) mg/dL 100 H Urine Ketones (Negative) mg/dL Negative Urine Blood (Negative) Moderate H Urine Nitrite (Negative) Negative Urine Bilirubin (Negative) Negative Urine Urobilinogen (Up TO 0.2) EU/dL 0.2 Ur Leukocyte Esterase (Negative) Moderate H Urine Glucose (Negative) mg/dL >=1000 H
[2020-10-13 18:28] LABS: WBC >50 HPF (0-5)
[2020-10-13 18:29] LABS: C & S Indicated? Yes
[2020-10-13 19:19] LABS: Abs Immature Grans 0.03 10^3/uL (0.0-0.06); Absolute Basophil Count 0.05 10^3/uL (0.0-0.2); Absolute Eosinophil Count 0.09 10^3/uL (0.0-0.7); Absolute Lymphocyte Count 1.77 10^3/uL (1.2-3.4); Absolute Monocyte Count 0.68 10^3/uL (0.1-0.8); Absolute Neutrophil Count 5.48 10^3/uL (1.2-6.7); Basophils % 0.6; Eosinophils % 1.1; HCT 44.2 % (40.0-50.0); HGB 14.9 g/dL (13.5-17.5); Immature Grans % 0.4; Lymphocytes % 21.9; MCH 32.7 pg (27.0-33.0); MCHC 33.7 % (32.0-36.0); MCV 96.9 fL (80-95); MPV 9.9 fL (8.0-11.0); Monocytes % 8.4; Neutrophils % 67.6; Nucleated RBC 0 %; Platelet Count 293 10^3/uL (130-400); RBC 4.56 10^6/uL (4.36-5.78); RDW 12.5 % (11.8-14.1); RDW-SD 44.3 fL
[2020-10-13 19:23] LABS: ALT 25 U/L (16-63); AST 17 U/L (15-37); Albumin 3.9 g/dL (3.4-5.0); Alkaline Phosphatase 87 U/L (46-116); Anion Gap 7.8 mmol/L (3-11); BUN 27 mg/dL (7-18); Bilirubin, Total 0.6 mg/dL (0.2-1.0); CO2 31.2 mmol/L (21.0-32.0); CREATININE 1.9 mg/dL (0.70-1.30); Calcium 9.7 mg/dL (8.5-10.1); Chloride 100 mmol/L (98-107); Estimated GFR 34.92 (mL/min/1.73m2); Glucose 158 mg/dL (74-106); Potassium 4.3 mmol/L (3.5-5.1); Sodium 139 mmol/L (136-145); Total Protein 8.7 g/dL (6.4-8.2)
--- NOTE | 2020-10-13 20:01 | NUR.NOTE ---
Nursing Note: REFERAL SENT TO DR GASTELUM FOR FREQUENT UTI NEEDS APPT 10/13/20
[2020-10-13] MEDS: Cephalexin 500 MG CAP PO (20:17)
[2020-10-13] MEDS: Cephalexin 500 MG CAP, 4 CAPS/BTL PO (20:18)
== END 2020-10-13 20:20 | disposition home or self-care (01) ==
PROVIDERS: Emergency Provider Physician Assistant; PCP Family Medicine
DX: N39.0 Urinary tract infection, site not specified (principal); B95.1 Streptococcus, group B, as the cause of diseases classified elsewhere; Z16.11 Resistance to penicillins
CPT/HCPCS: 80053; 87077; 99283; 81003; 81015; 85025; 87086

== ENCOUNTER 2020-11-12 20:57 | Outpatient (REF) | payer OTHER, SELFPAY ==
[2020-11-12 22:42] LABS: PSA, Diagnostic 0.9 ng/mL (0.0-6.5)
== END 2020-11-12 20:58 | disposition home or self-care (01) ==
LOC: LBN 20:57
PROVIDERS: PCP Family Medicine; Visit Provider Urology
DX: N39.0 Urinary tract infection, site not specified (principal); Z87.442 Personal history of urinary calculi; R31.9 Hematuria, unspecified
CPT/HCPCS: 84153

== ENCOUNTER 2020-11-13 08:00 | Outpatient (RCR) | payer SELFPAY ==
[2020-10-14 00:19] VITALS: BP 130/59; PULSE 52
[2020-10-16 08:25] VITALS: BP 122/77; PULSE 72
[2020-10-18 08:13] VITALS: BP 117/71; PULSE 56
[2020-10-23 08:43] VITALS: BP 174/77; PULSE 54
[2020-10-25 07:58] VITALS: BP 151/79; PULSE 55
[2020-10-30 08:00] VITALS: BP 160/74; PULSE 59
[2020-11-01 08:16] VITALS: BP 161/79; PULSE 68
[2020-11-06 08:06] VITALS: BP 151/80; PULSE 69
[2020-11-08 08:06] VITALS: BP 175/78; PULSE 64
[2020-11-13 08:11] VITALS: BP 167/72; PULSE 50
== END 2020-11-13 23:59 | disposition home or self-care (01) ==
LOC: CR 08:00
PROVIDERS: PCP Family Medicine; Visit Provider Family Medicine
DX: Z51.89 Encounter for other specified aftercare (principal)

== ENCOUNTER 2020-12-13 08:00 | Outpatient (RCR) | payer SELFPAY ==
[2020-11-14 00:21] VITALS: BP 167/72; PULSE 50
[2020-11-15 08:38] VITALS: BP 160/75; PULSE 54
[2020-11-20 08:01] VITALS: BP 163/81; PULSE 77
[2020-11-27 08:31] VITALS: BP 151/81; PULSE 60
[2020-11-29 08:08] VITALS: BP 149/84; PULSE 67
[2020-12-06 09:44] VITALS: BP 152/81; PULSE 69
[2020-12-13 08:21] VITALS: BP 167/83; PULSE 64
[2020-12-18 08:51] VITALS: BP 136/83; PULSE 65
== END 2020-12-13 23:59 | disposition home or self-care (01) ==
LOC: CR 08:00
PROVIDERS: PCP Family Medicine; Visit Provider Family Medicine
DX: Z51.89 Encounter for other specified aftercare (principal)

== ENCOUNTER 2021-01-10 08:00 | Outpatient (RCR) | payer SELFPAY ==
[2020-12-14 00:25] VITALS: BP 167/83; PULSE 64
[2020-12-20 08:36] VITALS: BP 143/80; PULSE 59
[2020-12-25 08:16] VITALS: BP 128/66; PULSE 57
[2021-01-03 08:00] VITALS: BP 146/83; PULSE 58
[2021-01-08 07:58] VITALS: BP 155/79; PULSE 55
[2021-01-10 08:07] VITALS: BP 150/75; PULSE 66
== END 2021-01-13 23:59 | disposition home or self-care (01) ==
LOC: CR 08:00
PROVIDERS: PCP Family Medicine; Visit Provider Family Medicine
DX: Z51.89 Encounter for other specified aftercare (principal); R69 Illness, unspecified

== ENCOUNTER 2021-02-01 02:31 | Outpatient (CLI) | payer OTHER, SELFPAY ==
[2021-02-01 12:04] LABS: Source Nasal/Nares
[2021-02-01 15:27] LABS: COVID-19 PCR Negative (Negative)
== END 2021-02-01 02:32 | disposition home or self-care (01) ==
PROVIDERS: PCP Family Medicine; Visit Provider Urology
DX: Z20.822 Contact with and (suspected) exposure to COVID-19 (principal); Z01.818 Encounter for other preprocedural examination
CPT/HCPCS: 87635

== ENCOUNTER 2021-02-04 07:14 | Day surgery (SDC) | payer OTHER, SELFPAY ==
[2021-02-04 07:55] VITALS: BP 148/79; PULSE 73; RESP 18; TEMP 36.6; O2SAT 97
--- NOTE | 2021-02-04 08:04 | HPE_ITS ---
Date of service: 02/04/21 Time of Service: 08:04 Assessment and Plan Assessment and plan (1) Microscopic hematuria: Status: Acute Assessment and plan: We will proceed with cystoscopy and retrograde pyel ogram to complete his hematuria workup. If we identify a bladder tumor, we will be prepared to do a transurethral resection under the same anesthetic. History of Present Illness History of Present Illness Chief Complaint: Microscopic hematuria Narrative: Gavino is a 75-year-old male that was initially seen here in clinic from a referral from the emergency room for recurrent urinary tract infection. He notes that on average he had 1 urinary tract infection per year. He finds that his symptoms voiding even without infection involve frequency, urgency, slowing of his stream, and nocturia. When he does have a UTI he notices his urine becomes cloudy and he has dysuria. His only positive culture in our EMR grew E coli. On his initial review here in clinic he did have a history of kidney stones. He has never had urinary retention. He does not recall family history of urologic cancers or concerns. He does note that he had an extensive smoking history with max of 3 packs/day for about 38 years. He was noted to have microscopic hematuria with an RBC 5-10. Renal ultrasound ordered to rule out kidney stone and renal mass. His ultrasound raised the suspicion of a small left renal stone but there was no hydronephrosis. No solid renal mass was identified. He presents for cystoscopy and retrograde pyelogram to complete his hematuria workup. He was started on tamsulosin for LUTS and his voiding symptoms have improved. He has no reported side effects from the tamsulosin. Review of Systems Narrative: No fevers or chills No vision change or dysphasia Hx Diabetes. No thyroid dysfunction Sleep apnea. No shortness of breath, cough or hemoptysis No chest pain or palpitations No nausea, vomiting, hepatitis, ulcers, jaundice, diarrhea or constipation No seizures, strokes or peripheral neuropathy On Plavix routinely. No anemia s/p right hip replacement. No gout COUNTS INCLUDE 234 BEDS AT THE [facility] Active Problem List (Updated 02/04/21 @ 08:07 by Cosme Newton MD) Microscopic hematuria (Acute) Occult blood positive stool (Acute) Diabetes mellitus type 2, insulin dependent (Acute) CAD (coronary artery disease) (Chronic) Hypertension (Chronic) Hyperlipidemia (Acute) LIN (obstructive sleep apnea) (Chronic) Anxiety (Chronic) Colon polyps (Acute) Diverticulosis (Acute) UTI (urinary tract infection) (Acute) Medical History (Updated 02/04/21 @ 08:07 by Cosme Newton MD) Cataract CVA (cerebral vascular accident) 1996 Depression Diabetic neuropathy DJD (degenerative joint disease) Right leg weakness pt. denies this Vitamin D deficiency Surgical History (Updated 02/04/21 @ 07:45 by Rachana Healy) History of cataract surgery History of colonoscopy (~03/2019) mar 2019, Dr. Curran, adenomatous polyp History of coronary artery stent placement History of hip replacement Social History Smoking/Tobacco Use Status: Former Tobacco Use Quit Date: 03/16/85 Smoking risk assessment performed?: Yes Alcohol Intake: never Drug use: Never Substance use type: does not use Do you feel safe at home: Yes Do you feel safe in your relationship?: Yes Meds Allergies and Home Medications Allergies Allergy/AdvReac Type Severity Reaction Status Date / Time No Known Allergies Allergy Unverified 01/31/21 11:25 Home Medications Medication Instructions Recorded Confirmed Type clopidogrel [Plavix] 75 mg PO BID 02/17/13 02/04/21 History fluoxetine 20 mg PO QAM 02/17/13 02/04/21 History Lantus Solostar U-100 Insulin 40 unit SQ HS 08/14/15 02/04/21 History acetaminophen [Tylenol Arthritis 650 mg PO TID PRN 08/14/15 02/04/21 History Pain] cholecalciferol (vitamin D3) 2,000 units PO DAILY 08/14/15 02/04/21 History magnesium oxide 400 mg PO DAILY 08/14/15 02/04/21 History nitroglycerin [Nitrostat] 0.4 mg SUBLINGUAL Q5MIN PRN 08/14/15 02/04/21 History tramadol 50 mg PO BID PRN 08/14/15 02/04/21 History insulin aspart U-100 [Novolog 8 units SQ QAM 11/30/15 02/04/21 History Flexpen U-100 Insulin] Jardiance 25 mg PO DAILY 07/16/17 02/04/21 History Victoza 2-Darion 1.8 mg SQ DAILY 07/16/17 02/04/21 History candesartan 16 1 tab PO DAILY 03/07/19 02/04/21 History mg-hydrochlorothiazide 12.5 mg tablet diltiazem HCl 120 mg PO DAILY 08/23/20 02/04/21 History mecobalamin (vitamin B12) 1,000 1,000 mcg PO DAILY 11/12/20 02/04/21 History mcg chewable tablet metformin 500 mg tablet 500 mg PO DAILY tab 11/12/20 02/04/21 History wxcejtjhvzmz-jtgrppkb-zrsrps tablet 1 tab PO DAILY 11/12/20 02/04/21 History tamsulosin 0.4 mg capsule 0.4 mg PO DAILY #30 cap 01/10/21 02/04/21 Rx Exam Const General: cooperative, comfortable and no acute distress Neck Neck: supple Resp Effort & Inspection: normal respiratory effort Auscultation: clear to auscultation bilaterally Cardio Rate: regular rate Rhythm: regular rhythm GI Palpation: soft and no masses Neuro General: patient alert, patient awake and patient oriented x3 Results Last Vital Signs Temp 36.6 C 02/04/21 07:55 Pulse 73 02/04/21 07:55 Resp 18 02/04/21 07:55 BP 148/79 H 02/04/21 07:55 Pulse Ox 97 02/04/21 07:55
--- NOTE | 2021-02-04 08:05 | W.ANESPRE ---
General Info Date of Service Date Performed: 02/04/21 Height: 5 ft 7 in Weight: 89.9 kg Body Mass Index (BMI): 31.0 Surgical Procedure: Operation Date: 02/04/21 08:40 Proposed Procedures Side Surgeon p Cystoscopy/Retrograde ? TURBT Bilateral Cosme Newton MD Meds Allergies and Home Medications Allergies Allergy/AdvReac Type Severity Reaction Status Date / Time No Known Allergies Allergy Unverified 01/31/21 11:25 Home Medication Medication Instructions Recorded clopidogrel [Plavix] 75 mg PO BID 02/17/13 fluoxetine 20 mg PO QAM 02/17/13 Lantus Solostar U-100 Insulin 40 unit SQ HS 08/14/15 acetaminophen [Tylenol Arthritis 650 mg PO TID PRN 08/14/15 Pain] cholecalciferol (vitamin D3) 2,000 units PO DAILY 08/14/15 magnesium oxide 400 mg PO DAILY 08/14/15 nitroglycerin [Nitrostat] 0.4 mg SUBLINGUAL Q5MIN PRN 08/14/15 tramadol 50 mg PO BID PRN 08/14/15 insulin aspart U-100 [Novolog 8 units SQ QAM 11/30/15 Flexpen U-100 Insulin] Jardiance 25 mg PO DAILY 07/16/17 Victoza 2-Darion 1.8 mg SQ DAILY 07/16/17 candesartan 16 1 tab PO DAILY 03/07/19 mg-hydrochlorothiazide 12.5 mg tablet diltiazem HCl 120 mg PO DAILY 08/23/20 mecobalamin (vitamin B12) 1,000 1,000 mcg PO DAILY 11/12/20 mcg chewable tablet metformin 500 mg tablet 500 mg PO DAILY tab 11/12/20 [id number]-ixngevdm-adsziq tablet 1 tab PO DAILY 11/12/20 tamsulosin 0.4 mg capsule 0.4 mg PO DAILY #30 cap 01/10/21 Current Visit Medications: Current Medications Generic Name Dose Route Start Last Admin Trade Name Freq PRN Reason Stop Dose Admin Ringer's Solution 1,000 mls @ 80 mls/hr 02/04/21 06:00 IV 03/03/21 23:59 INFUSION CLAUDIA Cefazolin Sodium/Dextrose 1 gm in 50 mls @ 100 mls/hr 02/04/21 06:00 Ancef Duplex IVPB 02/04/21 23:59 PREOP CLAUDIA IV Miscellaneous Supplies 1 each 02/04/21 06:00 Iv Access IV 03/03/21 23:59 DIRECTED CLAUDIA Sodium Chloride 0 ml 02/04/21 06:00 Normal Saline Flush 10 Ml Syr IV 03/03/21 23:59 PRN PRN Sodium Chloride 0 ml 02/04/21 06:00 Normal Saline 10 Ml Vial IJ 03/03/21 23:59 DIRECTED PRN Sterile Water 0 ml 02/04/21 06:00 Water,Injection,Sterile 10 Ml Vial IJ 03/03/21 23:59 DIRECTED PRN PFSH Active Problems Active Problems: Problem Status Onset Code Occult blood positive stool R19.5 Diabetes mellitus type 2, insulin dependent E11.9, Z79.4 CAD (coronary artery disease) I25.10 Hypertension I10 Hyperlipidemia E78.5 LIN (obstructive sleep apnea) G47.33 Anxiety F41.9 Colon polyps K63.5 Diverticulosis K57.90 UTI (urinary tract infection) N39.0 Medical History Active Problem List (Updated 02/04/21 @ 08:07 by Cosme Newton MD) Microscopic hematuria (Acute) Occult blood positive stool (Acute) Diabetes mellitus type 2, insulin dependent (Acute) CAD (coronary artery disease) (Chronic) Hypertension (Chronic) Hyperlipidemia (Acute) LIN (obstructive sleep apnea) (Chronic) Anxiety (Chronic) Colon polyps (Acute) Diverticulosis (Acute) UTI (urinary tract infection) (Acute) Medical History (Updated 02/04/21 @ 08:07 by Cosme Newton MD) Cataract CVA (cerebral vascular accident) 1996 Depression Diabetic neuropathy DJD (degenerative joint disease) Right leg weakness pt. denies this Vitamin D deficiency Medical History Comments:: pt. reports three heart stents Surgical History Surgical History (Updated 02/04/21 @ 07:45 by Rachana Healy) History of cataract surgery History of colonoscopy (~03/2019) mar 2019, Dr. Curran, adenomatous polyp History of coronary artery stent placement History of hip replacement Tobacco Smoking/Tobacco Use Status: Former Tobacco Use Alcohol Alcohol Intake: never Substance Use Substance use: Never Substance use type: does not use Vital Signs and Lab Results Vital Signs Most Recent Vital Signs in EMR: Most Recent Vital Signs Temp Pulse Resp BP Pulse Ox 36.6 C 73 18 148/79 H 97 02/04/21 07:55 02/04/21 07:55 02/04/21 07:55 02/04/21 07:55 02/04/21 07:55 Lab Results Blood Type / Crossmatch: No Data to Display Complete Blood Count: No Data to Display Complete Metabolic Panel: No Data to Display Liver Function Panel: No Data to Display Coagulation Panel: No Data to Display Cardiac Panel: No Data to Display Arterial Blood Gas: No Data to Display Venous Blood Gas: No Data to Display Pancreas Panel: No Data to Display Thyroid Panel: No Data to Display Infectious Disease: Coronavirus (COVID-19)(PCR) Negative (Negative) 02/01/21 10:28 02/01/21 Coronavirus 2019 Source Nasal/Nares 02/01/21 10:28 02/01/21 Blood Cultures: No Data to Display Toxicology Panel: No Data to Display Anesthesia Assessment and Plan Anesthesia History Personal History: No History of Anesthesia Complications Family History: No Family History of Anesthesia Complications Exercise Tolerance Exercise Tolerance: Metabolic Equivalents>4 Pertinent Negatives Pertinent Negatives: No Symptoms of GERD, No Major Cardiovascular Symptoms or Complaints, No Major Pulmonary Symptoms or Complaints and Other (CVA 1996 no residual symptoms) Cardiac & Pulmonary Exam Cardiac Exam: Normal S1/S2 Heart Sounds Pulmonary Exam: Clear Bilateral Breath Sounds Cardiac and Pulmonary Comment:: Cardiac stents 1998 and 2008, no recent cardiac symptoms No CPAP needed since weight loss Implantable Cardiac Device Does patient have a Pacemaker or an ICD?: No Airway Exam Known Difficult Airway: No Mallampati Class: 2 Mouth Opening: Normal (> 3cm) Thyromental Distance: Greater than 3 cm Neck Range of Motion: Full ROM Neck Circumference: Normal Teeth Condition: Removable Dentures/Plates Upper Airway Comments: 4 teeth on bottom, no loose ASA Classification ASA Score: ASA 3 Emergency Case?: No NPO Status NPO Status: NPO Clears >2 hours, Solids >8 hours Anesthesia Plan Resuscitation Status: Full Code Anesthesia Technique: General Anesthesia Airway Planned: Natural Airway Monitors Used: Standard Monitors Preoperative Comments:: LMA backup
[2021-02-04] MEDS: Lactated Ringers 1,000 ML 80 ML IV (08:20)
[2021-02-04 08:36] VITALS: BMI 31.0
[2021-02-04] MEDS: ceFAZolin 1 GM/50 ML BAG IVPB (08:54)
[2021-02-04] MEDS: Lidocaine 2% Jelly 6 ML SYR (09:12)
--- NOTE | 2021-02-04 09:17 | DI.RAD_ITS ---
Exam(s) XR RETROGRADE IN OR EXAM: XR RETROGRADE IN OR CLINICAL HISTORY: MICROSCOPIC HEMATURIA. TECHNIQUE: 2D and realtime digital imaging was performed. Fluoroscopy was provided for Dr. Newton for guidance with performing bilateral retrograde examination. COMPARISON: No exams were available for comparison FINDINGS: Fluoro time 32 seconds Please see procedure note for details. RADIATION DOSE DELIVERED: jeremy Lai=9.86 mGy
[2021-02-04] MEDS: Omnipaque 300 MG/ML 50 ML BTL (09:20)
--- NOTE | 2021-02-04 09:23 | PDOC.DSDIS_ITS ---
Discharge Plan Disposition Patient Disposition: HOME Condition: Stable Discharge Details Reason For Visit: cystoscopy Attending Provider: Cosme Newton Primary Care Provider: Brett Yanes [facility] Meds and New Rx's Prescriptions: No Action mecobalamin (vitamin B12) 1,000 mcg tablet,chewable 1,000 mcg PO DAILY RF: 0 okyczimfnpqa-uxwewgko-eyyhqn Tablet 1 tab PO DAILY RF: 0 tamsulosin [Flomax] 0.4 mg capsule 0.4 mg PO DAILY Qty: 30 RF: 2 candesartan-hydrochlorothiazid 16-12.5 mg tablet 1 tab PO DAILY RF: 0 metformin 500 mg tablet 500 mg PO DAILY RF: 0 clopidogrel [Plavix] 75 MG tablet 75 mg PO BID RF: 0 fluoxetine 20 MG capsule 20 mg PO QAM RF: 0 tramadol 50 MG tablet 50 mg PO BID PRNRF: 0 acetaminophen [Tylenol Arthritis Pain] 650 MG tablet extended release 650 mg PO TID PRN (Reason: Pain) RF: 0 nitroglycerin [Nitrostat] 0.4 MG tablet, sublingual 0.4 mg Sublingual Q5MIN PRN (Reason: Chest Pain) RF: 0 cholecalciferol (vitamin D3) 1,000 UNITS tablet 2,000 units PO DAILY RF: 0 Lantus Solostar U-100 Insulin 100 UNIT/ML insulin pen 40 unit SQ HS RF: 0 magnesium oxide 400 MG capsule 400 mg PO DAILY RF: 0 insulin aspart U-100 [Novolog Flexpen U-100 Insulin] 100 UNIT/ML insulin pen 8 units SQ QAM RF: 0 diltiazem HCl 120 mg capsule,extended release 24 hr 120 mg PO DAILY RF: 0 Victoza 2-Darion 0.6 MG/0.1 ML pen injector 1.8 mg SQ DAILY RF: 0 Jardiance 25 MG tablet 25 mg PO DAILY RF: 0 Discharge Instructions Additional Instructions: Already has appt arranged Activity:: Activity as Tolerated Remove Dressings/Wound Care:: 24 hours Shower/Bathe:: 24 hours Discharge Orders Discharge Orders: Discharge Order (Routine); Ordered 02/04/21 Ordered By: Cosme Newton DS: Diagnosis Discharge Diagnosis (1) Microscopic hematuria: Status: Acute
[2021-02-04 09:27] VITALS: BP 110/60; PULSE 66; RESP 18; TEMP 36.3; O2SAT 94
--- NOTE | 2021-02-04 09:27 | W.PM.OP ---
Date of service: 02/04/21 Time of Service: 09:27 Operative Note Operative Note DATE OF PROCEDURE: 02/04/21 PRE-OP DIAGNOSIS: Microscopic hematuria POST-OP DIAGNOSIS: same PROCEDURE: Cystoscopy with bilateral retrograde pyelogram SURGEON: Cosme Newton ANESTHESIA TYPE: Local By Surgeon and MAC Refer to Anesthesia Record ESTIMATED BLOOD LOSS: 5 Patient was transported to: same day Patient's condition: stable Implants: None Indications: This is a 76 year-old gentleman who has a history of kidney stones and urinary tract infections. He has been identified as having persistent microscopic hematuria. He had a renal ultrasound that showed no renal masses but the possibility of nonobstructing stones in the left kidney. He presents for cystoscopy with retrograde pyelogram to complete his hematuria work-up. Findings: No papillary or nodular lesions in the bladder Procedure Description: The patient was given a dose of preoperative IV antibiotics. He was brought to the operating room on 02/04/2021. After successful induction of general anesthesia without intubation, he was placed in the dorsal lithotomy position. His genitalia was prepped and draped. 2% Xylocaine jelly was instilled into the urethra to act as a local anesthetic. A 22 [place] rigid cystoscope was passed through the urethra into the bladder. The urethra and bladder were inspected with the 30 degree lens. The pendulous, bulbar and membranous urethra was all appeared normal with no strictures. The prostatic urethra showed some lateral lobe enlargement with no active bleeding and no papillary lesions on the prostatic mucosa. The bladder neck was entered and the bladder mucosa was inspected. Each ureteral orifice was identified. Each orifice appeared normal in configuration and location. We then cannulated each orifice with a 5 [place] access catheter and injected Omnipaque under fluoroscopic guidance. This allowed us to perform a retrograde pyelogram. No filling defects were seen on either side. Both sides drained promptly on a 5-minute drainage film. The remainder the bladder was inspected with both a 30 and a 70 degree lens. The bladder was moderately trabeculated but no papillary or nodular lesions were seen. No diverticuli were seen. The bladder was emptied and the cystoscope was withdrawn. The patient tolerated this procedure well with no complications. Based on today's examination, I find no significant uropathology. We recommend yearly urinalysis with a repeat work-up in 3 to 5 years if the microscopic hematuria persists.
--- NOTE | 2021-02-04 09:46 | W.ANESPOSTOP ---
Postoperative Evaluation Date, Time and Location Date Performed: 02/04/21 Time Performed: 09:47 Patient Location: Day Surgery Unit Vital Signs Most Recent Imported Vital Signs: Most Recent Vital Signs Temp Pulse Resp BP Pulse Ox 36.3 C L 66 18 110/60 94 02/04/21 09:27 02/04/21 09:27 02/04/21 09:27 02/04/21 09:27 02/04/21 09:27 Pain Score Most Recent Pain Score: Most Recent Pain Score Pain Level 2 02/04/21 07:55 Assessment Mental Status: Awake (Alert & Oriented to Patient Baseline) Airway and Respiratory Function: Patent airway with normal (patient baseline) respiratory exam Cardiovascular Function: Hemodynamically Stable Hydration Status: Adequately Hydrated Nausea & Vomiting: No Nausea or Vomiting Pain: Pain is tolerable per patient Peripheral Nerve Block: Patient did not receive a nerve block
[2021-02-04 10:00] VITALS: BP 127/57; PULSE 65; RESP 18; TEMP 36.6; O2SAT 95
[2021-02-04] MEDS: Phenazopyridine 200 MG TAB PO (10:09)
== END 2021-02-04 11:07 | disposition home or self-care (01) ==
PROVIDERS: PCP Family Medicine; Visit Provider Urology
PROC: (CPT 74450; principal; 2021-02-04 08:30)
DX: R31.29 Other microscopic hematuria (principal); E11.9 Type 2 diabetes mellitus without complications; Z79.4 Long term (current) use of insulin; G47.33 Obstructive sleep apnea (adult) (pediatric)
CPT/HCPCS: 52005; 74420; J0131; J0690; J1885; J2405; Q9967

== ENCOUNTER 2021-02-12 08:00 | Outpatient (RCR) | payer SELFPAY ==
[2021-01-14 00:25] VITALS: BP 150/75; PULSE 66
[2021-01-15 08:24] VITALS: BP 162/92; PULSE 95
[2021-01-17 07:59] VITALS: BP 135/79; PULSE 66
[2021-01-22 08:16] VITALS: BP 154/81; PULSE 75
[2021-01-24 08:13] VITALS: BP 134/77; PULSE 57
[2021-02-12 09:32] VITALS: BP 145/72; PULSE 73
== END 2021-02-12 23:59 | disposition home or self-care (01) ==
LOC: CR 08:00
PROVIDERS: PCP Family Medicine; Visit Provider Family Medicine
DX: Z51.89 Encounter for other specified aftercare (principal); R69 Illness, unspecified

== ENCOUNTER 2021-03-14 08:00 | Outpatient (RCR) | payer SELFPAY ==
[2021-02-13 00:21] VITALS: BP 145/72; PULSE 73
[2021-02-14 08:30] VITALS: BP 168/89; PULSE 73
[2021-02-19 10:23] VITALS: BP 151/70; PULSE 60
[2021-02-21 08:19] VITALS: BP 170/69; PULSE 62
[2021-02-26 08:47] VITALS: BP 171/81; PULSE 54
[2021-02-28 08:14] VITALS: BP 153/76; PULSE 62
[2021-03-05 08:00] VITALS: BP 150/83; PULSE 79
[2021-03-07 08:54] VITALS: BP 147/82; PULSE 64
[2021-03-12 08:04] VITALS: BP 162/76; PULSE 65
[2021-03-14 08:51] VITALS: BP 132/77; PULSE 75
== END 2021-03-15 23:59 | disposition home or self-care (01) ==
LOC: CR 08:00
PROVIDERS: PCP Family Medicine; Visit Provider Family Medicine
DX: Z51.89 Encounter for other specified aftercare (principal); R69 Illness, unspecified

== ENCOUNTER 2021-06-11 08:00 | Outpatient (RCR) | payer SELFPAY ==
[2021-05-14 08:17] VITALS: BP 181/76; PULSE 60
[2021-05-16 08:12] VITALS: BP 146/70; PULSE 61
[2021-05-21 08:03] VITALS: BP 131/65; PULSE 78
[2021-05-23 08:10] VITALS: BP 161/74; PULSE 71; O2SAT 93
[2021-05-28 08:19] VITALS: BP 128/67; PULSE 61
[2021-05-30 08:15] VITALS: BP 127/68; PULSE 63
[2021-06-04 07:51] VITALS: BP 122/54; PULSE 45; O2SAT 97
[2021-06-11 08:01] VITALS: BP 153/71; PULSE 55
== END 2021-06-13 23:59 | disposition home or self-care (01) ==
LOC: CR 08:00
PROVIDERS: PCP Family Medicine; Visit Provider Family Medicine
DX: R69 Illness, unspecified (principal)

== ENCOUNTER 2021-07-11 08:00 | Outpatient (RCR) | payer SELFPAY ==
[2021-06-14 00:06] VITALS: BP 153/71; PULSE 55
[2021-06-18 08:11] VITALS: BP 165/70; PULSE 67
[2021-06-20 08:04] VITALS: BP 149/67; PULSE 66
[2021-06-25 08:10] VITALS: BP 155/70; PULSE 65; O2SAT 96
[2021-06-27 08:17] VITALS: BP 134/65; PULSE 55
[2021-07-04 08:08] VITALS: BP 162/69; PULSE 55; O2SAT 96
[2021-07-09 08:06] VITALS: BP 133/70; PULSE 62
[2021-07-11 08:13] VITALS: BP 149/68; PULSE 55
== END 2021-07-13 23:59 | disposition home or self-care (01) ==
LOC: CR 08:00
PROVIDERS: PCP Family Medicine; Visit Provider Internal Medicine Cardiovascular Disease
DX: R69 Illness, unspecified (principal)

== ENCOUNTER 2021-07-24 18:11 | Outpatient (REF) | payer OTHER, SELFPAY ==
[2021-07-24 20:13] LABS: Anion Gap 10.1 mmol/L (3-11); BUN 20 mg/dL (7-18); CO2 25.9 mmol/L (21.0-32.0); CREATININE 1.4 mg/dL (0.70-1.30); Calcium 8.9 mg/dL (8.5-10.1); Chloride 103 mmol/L (98-107); Estimated GFR 49.54 (mL/min/1.73m2); Glucose 218 mg/dL (74-106); Potassium 4.3 mmol/L (3.5-5.1); Sodium 139 mmol/L (136-145)
== END 2021-07-24 18:12 | disposition home or self-care (01) ==
LOC: NCHCN 18:11
PROVIDERS: PCP Family Medicine; Visit Provider Family Medicine
DX: E11.8 Type 2 diabetes mellitus with unspecified complications (principal); Z79.4 Long term (current) use of insulin
CPT/HCPCS: 80048

== ENCOUNTER 2021-08-13 08:23 | Outpatient (RCR) | payer SELFPAY ==
[2021-07-14 00:03] VITALS: BP 149/68; PULSE 55
[2021-07-16 08:22] VITALS: BP 163/77; PULSE 61
[2021-07-18 08:10] VITALS: BP 154/81; PULSE 64
[2021-07-23 08:12] VITALS: BP 170/73; PULSE 67
[2021-07-30 10:02] VITALS: BP 131/70; PULSE 64
[2021-08-06 08:12] VITALS: BP 120/66; PULSE 49
[2021-08-08 08:49] VITALS: BP 126/67; PULSE 70
[2021-08-13 08:00] VITALS: BP 142/74; PULSE 77
== END 2021-08-13 23:59 | disposition home or self-care (01) ==
LOC: CR 08:23
PROVIDERS: PCP Family Medicine; Visit Provider Internal Medicine Cardiovascular Disease
DX: R69 Illness, unspecified (principal)

== ENCOUNTER 2021-09-12 15:04 | Outpatient (RCR) | payer SELFPAY ==
[2021-08-14 00:12] VITALS: BP 142/74; PULSE 77
[2021-08-22 08:14] VITALS: BP 123/65; PULSE 57
[2021-08-27 08:11] VITALS: BP 141/75; PULSE 65
[2021-08-29 08:55] VITALS: BP 140/70; PULSE 53
[2021-09-03 08:08] VITALS: BP 153/73; PULSE 62
[2021-09-10 08:07] VITALS: BP 146/72; PULSE 92
== END 2021-09-12 23:59 | disposition home or self-care (01) ==
LOC: CR 15:04
PROVIDERS: PCP Family Medicine; Visit Provider Internal Medicine Cardiovascular Disease
DX: R69 Illness, unspecified (principal)

== ENCOUNTER 2021-10-10 08:29 | Outpatient (RCR) | payer SELFPAY ==
[2021-09-17 08:08] VITALS: BP 125/63; PULSE 54
[2021-09-17 08:24] VITALS: BP 125/63; PULSE 54
[2021-09-19 08:36] VITALS: BP 139/69; PULSE 60
[2021-09-24 08:40] VITALS: BP 141/76; PULSE 79
[2021-10-01 08:04] VITALS: BP 162/77; PULSE 63
[2021-10-03 08:09] VITALS: BP 147/63; PULSE 52
[2021-10-10 08:06] VITALS: BP 175/75; PULSE 61
== END 2021-10-13 23:59 | disposition home or self-care (01) ==
LOC: CR 08:29
PROVIDERS: PCP Family Medicine; Visit Provider Internal Medicine Cardiovascular Disease
DX: R69 Illness, unspecified (principal)

== ENCOUNTER 2021-11-05 08:09 | Outpatient (RCR) | payer SELFPAY ==
[2021-10-14 00:02] VITALS: BP 175/75; PULSE 61
[2021-10-15 08:18] VITALS: BP 157/75; PULSE 64
[2021-10-17 08:05] VITALS: BP 126/73; PULSE 77
[2021-10-22 09:21] VITALS: BP 114/65; PULSE 63
[2021-10-24 09:14] VITALS: BP 127/65; PULSE 53
[2021-10-29 08:51] VITALS: BP 145/76; PULSE 77
[2021-10-31 08:06] VITALS: BP 123/72; PULSE 56
[2021-11-05 08:02] VITALS: BP 147/79; PULSE 79
== END 2021-11-13 23:59 | disposition home or self-care (01) ==
LOC: CR 08:09
PROVIDERS: PCP Family Medicine; Visit Provider Internal Medicine Cardiovascular Disease
DX: R69 Illness, unspecified (principal)

== ENCOUNTER 2021-12-12 08:13 | Outpatient (RCR) | payer SELFPAY ==
[2021-11-14 00:14] VITALS: BP 147/79; PULSE 79
[2021-11-14 08:19] VITALS: BP 147/67; PULSE 55
[2021-11-19 07:59] VITALS: BP 148/82; PULSE 80
[2021-11-21 07:59] VITALS: BP 122/67; PULSE 67
[2021-11-26 08:01] VITALS: BP 164/73; PULSE 59
[2021-11-28 08:04] VITALS: BP 151/77; PULSE 70
[2021-12-03 08:05] VITALS: BP 120/73; PULSE 52
[2021-12-05 07:51] VITALS: BP 157/69; PULSE 55
[2021-12-10 08:16] VITALS: BP 136/69; PULSE 61
[2021-12-12 08:04] VITALS: BP 119/66; PULSE 83
== END 2021-12-13 23:59 | disposition home or self-care (01) ==
LOC: CR 08:13
PROVIDERS: PCP Family Medicine; Visit Provider Internal Medicine Cardiovascular Disease
DX: R69 Illness, unspecified (principal)

== ENCOUNTER 2022-01-09 08:00 | Outpatient (RCR) | payer SELFPAY ==
[2021-12-14 00:08] VITALS: BP 119/66; PULSE 83
[2021-12-17 08:04] VITALS: BP 129/59; PULSE 49
[2021-12-19 08:02] VITALS: BP 115/55; PULSE 55
[2021-12-26 08:06] VITALS: BP 140/77; PULSE 74
[2021-12-31 08:03] VITALS: BP 139/74; PULSE 69
[2022-01-02 08:23] VITALS: BP 141/68; PULSE 62
[2022-01-07 08:24] VITALS: BP 135/65; PULSE 62
[2022-01-09 08:24] VITALS: BP 141/60; PULSE 49
== END 2022-01-13 23:59 | disposition home or self-care (01) ==
LOC: CR 08:00
PROVIDERS: PCP Family Medicine; Visit Provider Internal Medicine Cardiovascular Disease
DX: R69 Illness, unspecified (principal)
CPT/HCPCS: S9472

== ENCOUNTER 2022-02-11 08:00 | Outpatient (RCR) | payer SELFPAY ==
[2022-01-14 00:16] VITALS: BP 141/60; PULSE 49
[2022-01-14 11:42] VITALS: BP 138/68; PULSE 59
[2022-01-21 09:09] VITALS: BP 130/66; PULSE 58
[2022-01-23 08:09] VITALS: BP 115/64; PULSE 61
[2022-01-28 08:00] VITALS: BP 138/71; PULSE 64
[2022-01-30 08:01] VITALS: BP 129/67; PULSE 62
[2022-02-04 08:06] VITALS: BP 140/67; PULSE 62
[2022-02-11 08:33] VITALS: BP 158/70; PULSE 56
== END 2022-02-12 23:59 | disposition home or self-care (01) ==
LOC: CR 08:00
PROVIDERS: PCP Family Medicine; Visit Provider Internal Medicine Cardiovascular Disease
DX: R69 Illness, unspecified (principal)

== ENCOUNTER 2022-03-13 08:29 | Outpatient (RCR) | payer SELFPAY ==
[2022-02-13 00:18] VITALS: BP 158/70; PULSE 56
[2022-03-06 08:10] VITALS: BP 140/77; PULSE 81
[2022-03-11 08:09] VITALS: BP 122/75; PULSE 99
[2022-03-13 08:46] VITALS: BP 123/66; PULSE 70
== END 2022-03-15 23:59 | disposition home or self-care (01) ==
LOC: CR 08:29
PROVIDERS: PCP Family Medicine; Visit Provider Internal Medicine Cardiovascular Disease
DX: R69 Illness, unspecified (principal)

== ENCOUNTER 2022-04-15 08:00 | Outpatient (RCR) | payer SELFPAY ==
[2022-03-16 00:09] VITALS: BP 123/66; PULSE 70
[2022-03-18 08:00] VITALS: BP 126/66; PULSE 62
[2022-03-25 08:06] VITALS: BP 147/71; PULSE 64
[2022-04-01 08:12] VITALS: BP 149/75; PULSE 68
[2022-04-03 08:08] VITALS: BP 152/80; PULSE 66
[2022-04-08 08:19] VITALS: BP 123/72; PULSE 72
[2022-04-15 08:40] VITALS: BP 123/62; PULSE 47
== END 2022-04-15 23:59 | disposition home or self-care (01) ==
LOC: CR 08:00
PROVIDERS: PCP Family Medicine; Visit Provider Internal Medicine Cardiovascular Disease
DX: R69 Illness, unspecified (principal)

== ENCOUNTER 2022-06-12 08:03 | Outpatient (RCR) | payer SELFPAY ==
[2022-05-14 00:16] VITALS: BP 142/80; PULSE 92
[2022-05-15 08:24] VITALS: BP 137/75; PULSE 75
[2022-05-20 08:18] VITALS: BP 145/70; PULSE 58
[2022-05-27 08:26] VITALS: BP 159/72; PULSE 58
[2022-05-29 08:03] VITALS: BP 152/73; PULSE 58
[2022-06-05 08:10] VITALS: BP 137/64; PULSE 55
[2022-06-10 08:42] VITALS: BP 145/75; PULSE 63
[2022-06-12 08:06] VITALS: BP 136/73; PULSE 75
[2022-06-17 07:59] VITALS: BP 134/79; PULSE 100
== END 2022-06-13 23:59 | disposition home or self-care (01) ==
LOC: CR 08:03
PROVIDERS: PCP Family Medicine; Visit Provider Internal Medicine Cardiovascular Disease

== ENCOUNTER 2022-07-10 08:06 | Outpatient (RCR) | payer SELFPAY ==
[2022-06-14 00:20] VITALS: BP 136/73; PULSE 75
[2022-06-24 08:03] VITALS: BP 151/67; PULSE 53
[2022-07-01 08:04] VITALS: BP 154/80; PULSE 65
[2022-07-08 08:24] VITALS: BP 149/73; PULSE 59
== END 2022-07-13 23:59 | disposition home or self-care (01) ==
LOC: CR 08:06
PROVIDERS: PCP Family Medicine; Visit Provider Internal Medicine Cardiovascular Disease
DX: R69 Illness, unspecified (principal)

== ENCOUNTER 2022-08-12 08:17 | Outpatient (RCR) | payer SELFPAY ==
[2022-07-14 00:20] VITALS: BP 149/73; PULSE 59
[2022-07-15 08:12] VITALS: BP 153/69; PULSE 53
[2022-07-17 08:25] VITALS: BP 147/64; PULSE 52
[2022-07-22 08:07] VITALS: BP 147/71; PULSE 49
[2022-07-29 08:29] VITALS: BP 121/74; PULSE 85
[2022-07-31 08:10] VITALS: BP 122/62; PULSE 56
[2022-08-05 08:38] VITALS: BP 151/67; PULSE 61
[2022-08-07 08:36] VITALS: BP 120/63; PULSE 53
[2022-08-12 08:26] VITALS: BP 127/74; PULSE 75
== END 2022-08-13 23:59 | disposition home or self-care (01) ==
LOC: CR 08:17
PROVIDERS: PCP Family Medicine; Visit Provider Internal Medicine Cardiovascular Disease

== ENCOUNTER 2022-08-19 14:57 | Outpatient (REF) | payer OTHER, SELFPAY ==
[2022-08-19 15:51] LABS: HCT 41.7 % (40.0-50.0); HGB 13.8 g/dL (13.5-17.5); MCH 32.8 pg (27.0-33.0); MCHC 33.1 % (32.0-36.0); MCV 99 fL (80-95); MPV 10.5 fL (8.0-11.0); Platelet Count 187 10^3/uL (130-400); RBC 4.21 10^6/uL (4.36-5.78); RDW 12.9 % (11.8-14.1); RDW-SD 46.8 fL; WBC 5.77 10^3/uL (4.4-10.8)
[2022-08-19 16:39] LABS: ALT 20 U/L (16-63); AST 24 U/L (15-37); Albumin 3.7 g/dL (3.4-5.0); Alkaline Phosphatase 71 U/L (46-116); Anion Gap 5.5 mmol/L (3-11); BUN 16 mg/dL (7-18); Bilirubin, Total 0.6 mg/dL (0.2-1.0); CO2 27.5 mmol/L (21.0-32.0); CREATININE 1.2 mg/dL (0.70-1.30); Calcium 8.9 mg/dL (8.5-10.1); Chloride 106 mmol/L (98-107); Estimated GFR 63.07 (mL/min/1.73m2); Glucose 91 mg/dL (74-106); Potassium 4.4 mmol/L (3.5-5.1); Sodium 139 mmol/L (136-145); Total Protein 7.7 g/dL (6.4-8.2)
== END 2022-08-19 14:58 | disposition home or self-care (01) ==
LOC: NCHCN 14:57
PROVIDERS: PCP Family Medicine; Visit Provider Family Medicine
DX: E11.22 Type 2 diabetes mellitus with diabetic chronic kidney disease (principal); I10 Essential (primary) hypertension; N18.31 Chronic kidney disease, stage 3a
CPT/HCPCS: 80053; 85027

== ENCOUNTER 2022-08-21 07:43 | Outpatient (CLI) | payer OTHER, SELFPAY ==
--- NOTE | 2022-08-21 07:30 | RT.EKG_ITS ---
APPROVED REPORT Exam: Resting ECG Reason for Exam: cad Patient Location: O HR:60 bpm ECG Measurements Heart Rate 60 AXIS [place] 305 P -27 QRSd 100 QRS 20 QT 409 T 15 QTc 409 Conclusion Sinus rhythm...normal P axis, V-rate 50- 99 Prolonged KY interval...KY >220, V-rate 50- 90 Baseline wander in lead(s) V1,V2,V5,V6
== END 2022-08-21 07:44 | disposition home or self-care (01) ==
LOC: DI.CARD 07:43
PROVIDERS: PCP Family Medicine; Visit Provider Internal Medicine Cardiovascular Disease
DX: I25.10 Atherosclerotic heart disease of native coronary artery without angina pectoris (principal)
CPT/HCPCS: 93010

== ENCOUNTER 2022-09-11 08:01 | Outpatient (RCR) | payer SELFPAY ==
[2022-08-14 00:08] VITALS: BP 127/74; PULSE 75
[2022-08-14 08:23] VITALS: BP 142/70; PULSE 62
[2022-08-21 08:15] VITALS: BP 142/65; PULSE 56
[2022-08-26 08:26] VITALS: BP 161/78; PULSE 58
[2022-09-02 08:18] VITALS: BP 154/67; PULSE 52
[2022-09-04 08:12] VITALS: BP 136/68; PULSE 58
[2022-09-09 08:30] VITALS: BP 156/66; PULSE 55
[2022-09-11 10:33] VITALS: BP 134/74; PULSE 67
== END 2022-09-12 23:59 | disposition home or self-care (01) ==
LOC: CR 08:01
PROVIDERS: PCP Family Medicine; Visit Provider Internal Medicine Cardiovascular Disease
DX: R69 Illness, unspecified (principal)

== ENCOUNTER 2022-10-09 08:04 | Outpatient (RCR) | payer SELFPAY ==
[2022-09-13 00:15] VITALS: BP 134/74; PULSE 67
[2022-09-18 08:07] VITALS: BP 142/70; PULSE 70
[2022-09-23 08:11] VITALS: BP 149/77; PULSE 59
[2022-09-25 08:34] VITALS: BP 145/74; PULSE 62
[2022-10-02 08:13] VITALS: BP 163/81; PULSE 70
[2022-10-07 08:10] VITALS: BP 140/70; PULSE 66
[2022-10-09 08:21] VITALS: BP 133/80; PULSE 78
== END 2022-10-13 23:59 | disposition home or self-care (01) ==
LOC: CR 08:04
PROVIDERS: PCP Family Medicine; Visit Provider Internal Medicine Cardiovascular Disease
DX: R69 Illness, unspecified (principal)

== ENCOUNTER 2022-11-11 08:13 | Outpatient (RCR) | payer SELFPAY ==
[2022-10-14 00:14] VITALS: BP 133/80; PULSE 78
[2022-10-14 08:22] VITALS: BP 127/69; PULSE 61
[2022-10-21 08:14] VITALS: BP 136/69; PULSE 56
[2022-10-23 09:38] VITALS: BP 145/70; PULSE 52
[2022-10-28 08:33] VITALS: BP 151/67; PULSE 54
[2022-10-30 08:33] VITALS: BP 148/68; PULSE 56
[2022-11-04 08:02] VITALS: BP 148/74; PULSE 66
[2022-11-06 08:15] VITALS: BP 141/69; PULSE 56
[2022-11-11 08:25] VITALS: BP 156/73; PULSE 58
== END 2022-11-13 23:59 | disposition home or self-care (01) ==
LOC: CR 08:13
PROVIDERS: PCP Family Medicine; Visit Provider Internal Medicine Cardiovascular Disease
DX: R69 Illness, unspecified (principal)

== ENCOUNTER 2022-12-11 08:18 | Outpatient (RCR) | payer SELFPAY ==
[2022-11-14 00:20] VITALS: BP 156/73; PULSE 58
[2022-11-18 08:22] VITALS: BP 150/70; PULSE 64
[2022-11-20 08:18] VITALS: BP 125/72; PULSE 63
[2022-11-25 08:22] VITALS: BP 133/75; PULSE 64
[2022-11-27 10:26] VITALS: BP 140/72; PULSE 57
[2022-12-02 08:09] VITALS: BP 151/69; PULSE 62
[2022-12-09 08:36] VITALS: BP 150/67; PULSE 55
[2022-12-11 08:21] VITALS: BP 153/70; PULSE 53
[2022-12-18 08:24] VITALS: BP 114/60; PULSE 50
== END 2022-12-13 23:59 | disposition home or self-care (01) ==
LOC: CR 08:18
PROVIDERS: PCP Family Medicine; Visit Provider Internal Medicine Cardiovascular Disease
DX: R69 Illness, unspecified (principal)

== ENCOUNTER 2023-01-13 08:02 | Outpatient (RCR) | payer SELFPAY ==
[2022-12-14 00:17] VITALS: BP 153/70; PULSE 53
[2022-12-23 08:23] VITALS: BP 142/72; PULSE 54
[2022-12-30 08:10] VITALS: BP 140/63; PULSE 54
[2023-01-01 08:27] VITALS: BP 150/76; PULSE 59
[2023-01-06 08:34] VITALS: BP 151/74; PULSE 56
[2023-01-08 08:00] VITALS: BP 149/65; PULSE 46
[2023-01-13 08:18] VITALS: BP 139/77; PULSE 71
== END 2023-01-13 23:59 | disposition home or self-care (01) ==
LOC: CR 08:02
PROVIDERS: PCP Family Medicine; Visit Provider Internal Medicine Cardiovascular Disease
DX: R69 Illness, unspecified (principal)

== ENCOUNTER 2023-02-12 08:01 | Outpatient (RCR) | payer SELFPAY ==
[2023-01-14 00:21] VITALS: BP 153/70; PULSE 53
[2023-01-15 08:20] VITALS: BP 156/70; PULSE 54
[2023-01-20 08:09] VITALS: BP 154/82; PULSE 84
[2023-01-27 08:18] VITALS: BP 126/59; PULSE 44
[2023-01-29 08:01] VITALS: BP 139/68; PULSE 67
[2023-02-03 07:59] VITALS: BP 160/74; PULSE 65
[2023-02-10 08:15] VITALS: BP 166/87; PULSE 77
[2023-02-12 08:17] VITALS: BP 165/75; PULSE 75
== END 2023-02-12 23:59 | disposition home or self-care (01) ==
LOC: CR 08:01
PROVIDERS: PCP Family Medicine; Visit Provider Internal Medicine Cardiovascular Disease
DX: R69 Illness, unspecified (principal)

== ENCOUNTER 2023-03-12 08:05 | Outpatient (RCR) | payer SELFPAY ==
[2023-02-13 00:11] VITALS: BP 153/70; PULSE 53
[2023-02-17 08:00] VITALS: BP 116/67; PULSE 53
[2023-02-24 08:20] VITALS: BP 160/68; PULSE 52
[2023-03-03 08:22] VITALS: BP 120/65; PULSE 69
[2023-03-05 07:59] VITALS: BP 131/61; PULSE 75
[2023-03-10 08:51] VITALS: BP 145/68; PULSE 53
[2023-03-12 08:12] VITALS: BP 139/68; PULSE 61
== END 2023-03-15 23:59 | disposition home or self-care (01) ==
LOC: CR 08:05
PROVIDERS: PCP Family Medicine; Visit Provider Internal Medicine Cardiovascular Disease
DX: R69 Illness, unspecified (principal)

== ENCOUNTER 2023-04-14 08:03 | Outpatient (RCR) | payer SELFPAY ==
[2023-03-16 00:19] VITALS: BP 153/70; PULSE 53
[2023-03-17 08:09] VITALS: BP 152/76; PULSE 67
[2023-03-19 08:04] VITALS: BP 136/72; PULSE 61
[2023-03-24 08:50] VITALS: BP 171/79; PULSE 59
[2023-03-26 11:07] VITALS: BP 167/74; PULSE 54
[2023-04-02 08:42] VITALS: BP 167/76; PULSE 62
[2023-04-07 08:15] VITALS: BP 149/70; PULSE 56
[2023-04-09 08:17] VITALS: BP 140/73; PULSE 58
[2023-04-14 08:07] VITALS: BP 143/79; PULSE 62
== END 2023-04-15 23:59 | disposition home or self-care (01) ==
LOC: CR 08:03
PROVIDERS: PCP Family Medicine; Visit Provider Internal Medicine Interventional Cardiology
DX: R69 Illness, unspecified (principal)

== ENCOUNTER 2023-05-12 08:05 | Outpatient (RCR) | payer SELFPAY ==
[2023-04-16 00:24] VITALS: BP 153/70; PULSE 53
[2023-04-16 08:11] VITALS: BP 170/73; PULSE 59
[2023-04-21 11:31] VITALS: BP 147/73; PULSE 68
[2023-04-28 08:08] VITALS: BP 128/72; PULSE 78
[2023-04-30 08:08] VITALS: BP 141/68; O2SAT 95
[2023-05-05 08:13] VITALS: BP 141/76; PULSE 79
[2023-05-07 08:08] VITALS: BP 144/68; PULSE 60
[2023-05-12 08:16] VITALS: BP 163/73; PULSE 67
== END 2023-05-14 23:59 | disposition home or self-care (01) ==
LOC: CR 08:05
PROVIDERS: PCP Family Medicine; Visit Provider Internal Medicine Cardiovascular Disease
DX: R69 Illness, unspecified (principal)

== ENCOUNTER 2023-05-19 18:06 | Outpatient (REF) | payer OTHER, SELFPAY ==
[2023-05-19 19:38] LABS: Anion Gap 8.4 mmol/L (3-11); BUN 18 mg/dL (7-18); CO2 30.6 mmol/L (21.0-32.0); CREATININE 1.3 mg/dL (0.70-1.30); Calcium 9.3 mg/dL (8.5-10.1); Calculated LDL 127 mg/dL (<100); Chloride 103 mmol/L (98-107); Cholesterol 220 mg/dL (<200); Estimated GFR 56.93 (mL/min/1.73m2); Glucose 110 mg/dL (74-106); HDL Cholesterol 36 mg/dL (40-60); Potassium 4.6 mmol/L (3.5-5.1); Sodium 142 mmol/L (136-145); Triglyceride 286 mg/dL (<150)
[2023-05-19 19:48] LABS: Hemoglobin A1C 7.2 % (<5.7)
== END 2023-05-19 18:07 | disposition home or self-care (01) ==
LOC: LBN 18:06
PROVIDERS: PCP Family Medicine; Visit Provider Family Medicine
DX: E11.22 Type 2 diabetes mellitus with diabetic chronic kidney disease (principal); E78.5 Hyperlipidemia, unspecified
CPT/HCPCS: 80048; 80061; 83036

== ENCOUNTER 2023-06-09 08:06 | Outpatient (RCR) | payer SELFPAY ==
[2023-05-15 00:23] VITALS: BP 153/70; PULSE 53
[2023-05-19 08:32] VITALS: BP 160/75; PULSE 62
[2023-05-21 08:15] VITALS: BP 119/55; PULSE 68
[2023-05-26 08:17] VITALS: BP 142/70; PULSE 56
[2023-06-02 08:16] VITALS: BP 165/71; PULSE 52
[2023-06-04 08:53] VITALS: BP 146/74; PULSE 56
[2023-06-09 08:21] VITALS: BP 156/72; PULSE 54
== END 2023-06-14 23:59 | disposition home or self-care (01) ==
LOC: CR 08:06
PROVIDERS: PCP Family Medicine; Visit Provider Internal Medicine Cardiovascular Disease
DX: R69 Illness, unspecified (principal)

== ENCOUNTER 2023-07-14 08:01 | Outpatient (RCR) | payer SELFPAY ==
[2023-06-16 09:35] VITALS: BP 156/64; PULSE 55
[2023-06-23 08:06] VITALS: BP 145/73; PULSE 65
[2023-06-25 07:58] VITALS: BP 122/66; PULSE 59
[2023-06-30 08:06] VITALS: BP 133/71; PULSE 63
[2023-07-02 08:08] VITALS: BP 141/71; PULSE 60
[2023-07-07 08:14] VITALS: BP 130/57; PULSE 65
[2023-07-14 08:04] VITALS: BP 139/71; PULSE 68
== END 2023-07-14 23:59 | disposition home or self-care (01) ==
LOC: CR 08:01
PROVIDERS: PCP Family Medicine; Visit Provider Internal Medicine Cardiovascular Disease
DX: R69 Illness, unspecified (principal)

== ENCOUNTER 2023-08-13 08:06 | Outpatient (RCR) | payer SELFPAY ==
[2023-07-15 00:28] VITALS: BP 139/71; PULSE 68
[2023-07-16 08:09] VITALS: BP 121/61; PULSE 62; O2SAT 97
[2023-07-23 10:35] VITALS: BP 140/71; PULSE 61
[2023-07-28 08:13] VITALS: BP 139/71; PULSE 66
[2023-07-30 08:00] VITALS: BP 151/71; PULSE 52
[2023-08-04 08:14] VITALS: BP 126/64; PULSE 65
[2023-08-06 08:18] VITALS: BP 99/63; PULSE 67
[2023-08-13 08:22] VITALS: BP 113/65; PULSE 56
== END 2023-08-14 23:59 | disposition home or self-care (01) ==
LOC: CR 08:06
PROVIDERS: PCP Family Medicine; Visit Provider Internal Medicine Cardiovascular Disease
DX: R69 Illness, unspecified (principal)

== ENCOUNTER 2023-09-08 07:50 | Outpatient (RCR) | payer SELFPAY ==
[2023-08-15 00:11] VITALS: BP 139/71; PULSE 68
[2023-08-18 08:18] VITALS: BP 145/66; PULSE 49
[2023-08-20 08:13] VITALS: BP 131/63; PULSE 50
[2023-08-27 12:22] VITALS: BP 135/70; PULSE 55
[2023-09-01 08:20] VITALS: BP 134/73; PULSE 64
[2023-09-03 08:13] VITALS: BP 156/73; PULSE 52
[2023-09-08 08:17] VITALS: BP 153/67; PULSE 50
== END 2023-09-13 23:59 | disposition home or self-care (01) ==
LOC: CR 07:50
PROVIDERS: PCP Family Medicine; Visit Provider Internal Medicine Cardiovascular Disease
DX: R69 Illness, unspecified (principal)

== ENCOUNTER 2023-10-13 08:00 | Outpatient (RCR) | payer SELFPAY ==
[2023-09-14 00:04] VITALS: BP 139/71; PULSE 68
[2023-09-15 08:15] VITALS: BP 110/63; PULSE 48
[2023-09-22 08:24] VITALS: BP 122/64; PULSE 61; O2SAT 96
[2023-09-29 07:45] VITALS: BP 132/66; PULSE 56
[2023-10-01 08:25] VITALS: BP 139/66; PULSE 57
[2023-10-06 08:05] VITALS: BP 141/68; PULSE 51
[2023-10-13 08:00] VITALS: BP 119/68; PULSE 56
== END 2023-10-14 23:59 | disposition home or self-care (01) ==
LOC: CR 08:00
PROVIDERS: PCP Family Medicine; Visit Provider Internal Medicine Cardiovascular Disease
DX: R69 Illness, unspecified (principal)

== ENCOUNTER 2023-11-12 08:12 | Outpatient (RCR) | payer SELFPAY ==
[2023-10-15 00:06] VITALS: BP 139/71; PULSE 68
[2023-10-20 08:15] VITALS: BP 127/65; PULSE 54
[2023-10-22 10:19] VITALS: BP 128/66; PULSE 60
[2023-10-27 08:23] VITALS: BP 133/71; PULSE 54
[2023-10-29 08:05] VITALS: BP 142/60; PULSE 51
[2023-11-03 08:49] VITALS: BP 141/67; PULSE 48
[2023-11-10 08:17] VITALS: BP 133/61; PULSE 44
[2023-11-12 08:08] VITALS: BP 126/67; PULSE 55
== END 2023-11-14 23:59 | disposition home or self-care (01) ==
LOC: CR 08:12
PROVIDERS: PCP Family Medicine; Visit Provider Internal Medicine Cardiovascular Disease
DX: R69 Illness, unspecified (principal)

== ENCOUNTER 2023-12-10 08:08 | Outpatient (RCR) | payer SELFPAY ==
[2023-11-15 00:21] VITALS: BP 139/71; PULSE 68
[2023-11-17 08:23] VITALS: BP 135/73; PULSE 68
[2023-11-24 08:29] VITALS: BP 152/72; PULSE 52
[2023-11-26 09:24] VITALS: BP 143/66; PULSE 50
[2023-12-01 08:37] VITALS: BP 159/67; PULSE 50
[2023-12-03 09:23] VITALS: BP 128/71; PULSE 55
[2023-12-08 08:23] VITALS: BP 162/65; PULSE 45
[2023-12-10 08:23] VITALS: BP 154/70; PULSE 59
== END 2023-12-14 23:59 | disposition home or self-care (01) ==
LOC: CR 08:08
PROVIDERS: PCP Family Medicine; Visit Provider Internal Medicine Cardiovascular Disease
DX: R69 Illness, unspecified (principal)

== ENCOUNTER 2024-01-14 07:55 | Outpatient (RCR) | payer SELFPAY ==
[2023-12-15 00:24] VITALS: BP 139/71; PULSE 68
[2023-12-15 07:57] VITALS: BP 160/69; PULSE 48
[2023-12-22 08:30] VITALS: BP 151/70; PULSE 61
[2023-12-29 08:41] VITALS: BP 120/54; PULSE 53
[2024-01-05 08:27] VITALS: BP 157/73; PULSE 62
[2024-01-07 08:02] VITALS: BP 123/66; PULSE 59; O2SAT 98
[2024-01-12 08:58] VITALS: BP 126/66; PULSE 59
[2024-01-14 08:06] VITALS: BP 146/70; PULSE 61
== END 2024-01-14 23:59 | disposition home or self-care (01) ==
LOC: CR 07:55
PROVIDERS: PCP Family Medicine; Visit Provider Internal Medicine Cardiovascular Disease
DX: R69 Illness, unspecified (principal)

== ENCOUNTER 2024-02-09 08:14 | Outpatient (RCR) | payer SELFPAY ==
[2024-01-15 00:32] VITALS: BP 139/71; PULSE 68
[2024-01-21 08:10] VITALS: BP 145/72; PULSE 56
[2024-01-28 09:08] VITALS: BP 157/69; PULSE 48
[2024-02-02 08:43] VITALS: BP 175/72; PULSE 46
[2024-02-04 08:06] VITALS: BP 151/73; PULSE 58; O2SAT 96
[2024-02-09 08:20] VITALS: BP 153/70; PULSE 45
== END 2024-02-13 23:59 | disposition home or self-care (01) ==
LOC: CR 08:14
PROVIDERS: PCP Family Medicine; Visit Provider Internal Medicine Cardiovascular Disease
DX: R69 Illness, unspecified (principal)

== ENCOUNTER 2024-02-16 14:13 | Outpatient (REF) | payer OTHER, SELFPAY ==
[2024-02-16 15:20] LABS: COMMENT (LAB VIEW ONLY) 59.51 mg/dL
[2024-02-16 15:22] LABS: Microalb ug/mg Crea 172.6 ug/mg Cr
== END 2024-02-16 14:14 | disposition home or self-care (01) ==
LOC: NCHCN 14:13
PROVIDERS: PCP Student in an Organized Health Care Education/Training Program; Visit Provider Student in an Organized Health Care Education/Training Program
DX: N18.31 Chronic kidney disease, stage 3a (principal)
CPT/HCPCS: 82043; 82570

== ENCOUNTER 2024-03-15 08:02 | Outpatient (RCR) | payer SELFPAY ==
[2024-02-14 00:29] VITALS: BP 139/71; PULSE 68
[2024-02-16 08:12] VITALS: BP 167/82; PULSE 70
[2024-02-23 08:21] VITALS: BP 160/70; PULSE 56
[2024-02-25 12:39] VITALS: BP 151/75; PULSE 57
[2024-03-01 08:07] VITALS: BP 126/64; PULSE 49
[2024-03-15 08:11] VITALS: BP 140/68; PULSE 48
== END 2024-03-15 23:59 | disposition home or self-care (01) ==
LOC: CR 08:02
PROVIDERS: PCP Family Medicine; Visit Provider Internal Medicine Cardiovascular Disease
DX: R69 Illness, unspecified (principal)

== ENCOUNTER 2024-04-12 08:17 | Outpatient (RCR) | payer SELFPAY ==
[2024-03-16 00:29] VITALS: BP 139/71; PULSE 68
[2024-03-17 08:18] VITALS: BP 130/75; PULSE 72
[2024-03-22 08:07] VITALS: BP 123/69; PULSE 84
[2024-03-31 08:31] VITALS: BP 131/61; PULSE 49
[2024-04-05 08:13] VITALS: BP 130/57; PULSE 47
[2024-04-12 08:18] VITALS: BP 133/68; PULSE 76
== END 2024-04-15 23:59 | disposition home or self-care (01) ==
LOC: CR 08:17
PROVIDERS: PCP Student in an Organized Health Care Education/Training Program; Visit Provider Internal Medicine Cardiovascular Disease
DX: R69 Illness, unspecified (principal)

== ENCOUNTER 2024-05-12 08:07 | Outpatient (RCR) | payer SELFPAY ==
[2024-04-16 00:10] VITALS: BP 139/71; PULSE 68
[2024-04-21 08:20] VITALS: BP 140/66; PULSE 56
[2024-04-26 08:09] VITALS: BP 151/69; PULSE 65
[2024-04-28 08:00] VITALS: BP 125/68; PULSE 63; O2SAT 98
[2024-05-03 09:20] VITALS: BP 131/60; PULSE 55
[2024-05-10 08:11] VITALS: BP 128/65; PULSE 56
[2024-05-12 08:11] VITALS: BP 114/61; PULSE 61; O2SAT 97
== END 2024-05-13 23:59 | disposition home or self-care (01) ==
LOC: CR 08:07
PROVIDERS: PCP Student in an Organized Health Care Education/Training Program; Visit Provider Internal Medicine Cardiovascular Disease
DX: R69 Illness, unspecified (principal)

== ENCOUNTER 2024-05-18 16:26 | Outpatient (REF) | payer OTHER, SELFPAY ==
[2024-05-18 16:41] LABS: Anion Gap 9.7 mmol/L (3-11); BUN 14 mg/dL (7-18); CO2 26.3 mmol/L (21.0-32.0); CREATININE 1.2 mg/dL (0.70-1.30); Calcium 9.4 mg/dL (8.5-10.1); Chloride 108 mmol/L (98-107); Estimated GFR 62.29 (mL/min/1.73m2); Glucose 89 mg/dL (74-106); Potassium 4.8 mmol/L (3.5-5.1); Sodium 144 mmol/L (136-145)
== END 2024-05-18 16:27 | disposition home or self-care (01) ==
LOC: NCHCN 16:26
PROVIDERS: PCP Student in an Organized Health Care Education/Training Program; Visit Provider Student in an Organized Health Care Education/Training Program
DX: I10 Essential (primary) hypertension (principal)
CPT/HCPCS: 80048

== ENCOUNTER 2024-06-09 08:15 | Outpatient (RCR) | payer SELFPAY ==
[2024-05-14 00:05] VITALS: BP 139/71; PULSE 68
[2024-05-19 08:20] VITALS: BP 115/59; PULSE 55
[2024-05-24 08:32] VITALS: BP 135/68; PULSE 63
[2024-06-02 08:15] VITALS: BP 113/70; PULSE 63
[2024-06-07 08:41] VITALS: BP 160/64; PULSE 51
[2024-06-09 08:00] VITALS: BP 165/71; PULSE 51; O2SAT 96
== END 2024-06-13 23:59 | disposition home or self-care (01) ==
LOC: CR 08:15
PROVIDERS: PCP Student in an Organized Health Care Education/Training Program; Visit Provider Internal Medicine Cardiovascular Disease
DX: R69 Illness, unspecified (principal)

== ENCOUNTER 2024-07-12 08:20 | Outpatient (RCR) | payer SELFPAY ==
[2024-06-14 00:15] VITALS: BP 139/71; PULSE 68
[2024-06-14 08:22] VITALS: BP 151/61; PULSE 49
[2024-06-23 08:09] VITALS: BP 136/70; PULSE 62; O2SAT 95
[2024-06-28 08:40] VITALS: BP 154/65; PULSE 53
[2024-07-05 09:10] VITALS: BP 149/72; PULSE 68
[2024-07-07 08:24] VITALS: BP 123/72; PULSE 62
[2024-07-12 08:21] VITALS: BP 152/63; PULSE 43
== END 2024-07-13 23:59 | disposition home or self-care (01) ==
LOC: CR 08:20
PROVIDERS: PCP Student in an Organized Health Care Education/Training Program; Visit Provider Internal Medicine Cardiovascular Disease
DX: R69 Illness, unspecified (principal)

== ENCOUNTER 2024-08-09 08:03 | Outpatient (RCR) | payer SELFPAY ==
[2024-07-14 00:07] VITALS: BP 139/71; PULSE 68
[2024-07-19 08:23] VITALS: BP 143/68; PULSE 54
[2024-07-21 08:23] VITALS: BP 134/74; PULSE 61
[2024-07-26 08:16] VITALS: BP 157/77; PULSE 63
[2024-07-28 08:09] VITALS: BP 118/61; PULSE 61
[2024-08-02 08:06] VITALS: BP 140/76; PULSE 62
[2024-08-04 08:17] VITALS: BP 151/68; PULSE 57
[2024-08-09 08:07] VITALS: BP 144/64; PULSE 41
== END 2024-08-13 23:59 | disposition home or self-care (01) ==
LOC: CR 08:03
PROVIDERS: PCP Student in an Organized Health Care Education/Training Program; Visit Provider Internal Medicine Cardiovascular Disease
DX: R69 Illness, unspecified (principal)

== ENCOUNTER 2024-09-06 08:00 | Outpatient (RCR) | payer SELFPAY ==
[2024-08-14 00:06] VITALS: BP 139/71; PULSE 68
[2024-08-16 08:39] VITALS: BP 150/68; PULSE 48
[2024-08-23 09:13] VITALS: BP 144/71; PULSE 65
[2024-08-25 08:15] VITALS: BP 147/79; PULSE 61
[2024-08-30 08:28] VITALS: BP 157/74; PULSE 58
[2024-09-01 08:19] VITALS: BP 151/73; PULSE 57
[2024-09-06 08:18] VITALS: BP 142/73; PULSE 62
== END 2024-09-12 23:59 | disposition home or self-care (01) ==
LOC: CR 08:00
PROVIDERS: PCP Student in an Organized Health Care Education/Training Program; Visit Provider Internal Medicine Cardiovascular Disease
DX: R69 Illness, unspecified (principal)

== ENCOUNTER 2024-10-13 08:00 | Outpatient (RCR) | payer SELFPAY ==
[2024-09-13 00:04] VITALS: BP 142/73; PULSE 62
[2024-09-13 08:20] VITALS: BP 144/63; PULSE 53
[2024-09-15 08:14] VITALS: BP 129/56; PULSE 50
[2024-09-20 09:14] VITALS: BP 109/60; PULSE 63
[2024-10-04 09:12] VITALS: BP 138/66; PULSE 63
[2024-10-13 08:28] VITALS: BP 135/74; PULSE 70
== END 2024-10-13 23:59 | disposition home or self-care (01) ==
LOC: CR 08:00
PROVIDERS: PCP Student in an Organized Health Care Education/Training Program; Visit Provider Internal Medicine Cardiovascular Disease
DX: R69 Illness, unspecified (principal)

== ENCOUNTER 2024-11-10 08:00 | Outpatient (RCR) | payer SELFPAY ==
[2024-10-14 00:18] VITALS: BP 135/74; PULSE 70
[2024-10-18 08:19] VITALS: BP 118/57; PULSE 50
[2024-10-20 08:26] VITALS: BP 120/69; PULSE 63
[2024-10-25 08:31] VITALS: BP 136/73; PULSE 73
[2024-11-01 08:40] VITALS: BP 130/71; PULSE 72
[2024-11-10 08:33] VITALS: BP 151/77; PULSE 60
== END 2024-11-13 23:59 | disposition home or self-care (01) ==
LOC: CR 08:00
PROVIDERS: PCP Student in an Organized Health Care Education/Training Program; Visit Provider Internal Medicine Cardiovascular Disease
DX: R69 Illness, unspecified (principal)

== ENCOUNTER 2024-11-10 09:15 | Outpatient (CLI) | payer OTHER, SELFPAY ==
--- NOTE | 2024-11-10 09:15 | RT.EKG_ITS ---
APPROVED REPORT Exam: Resting ECG Reason for Exam: CAD,!st degree AV block Patient Location: O HR:67 bpm ECG Measurements Heart Rate 67 AXIS RI 267 P -8 QRSd 95 QRS 32 QT 394 T 24 QTc 416 Conclusion Sinus rhythm...normal P axis, V-rate 50- 99 Prolonged RI interval...RI >220, V-rate 50- 90
== END 2024-11-10 09:16 | disposition home or self-care (01) ==
LOC: DI.CARD 09:16
PROVIDERS: PCP Student in an Organized Health Care Education/Training Program; Visit Provider Internal Medicine Cardiovascular Disease
DX: I25.10 Atherosclerotic heart disease of native coronary artery without angina pectoris (principal); I44.0 Atrioventricular block, first degree
CPT/HCPCS: 93010

== ENCOUNTER 2024-12-13 08:00 | Outpatient (RCR) | payer SELFPAY ==
[2024-11-15 08:41] VITALS: BP 162/79; PULSE 59
[2024-11-22 08:16] VITALS: BP 155/59; PULSE 47
[2024-11-24 08:23] VITALS: BP 141/61; PULSE 46
[2024-12-01 09:16] VITALS: BP 136/62; PULSE 56
[2024-12-06 08:17] VITALS: BP 133/62; PULSE 49
[2024-12-13 08:08] VITALS: BP 161/67; PULSE 57
== END 2024-12-13 23:59 | disposition home or self-care (01) ==
LOC: CR 08:00
PROVIDERS: PCP Student in an Organized Health Care Education/Training Program; Visit Provider Internal Medicine Cardiovascular Disease
DX: R69 Illness, unspecified (principal)

== ENCOUNTER 2025-01-10 08:00 | Outpatient (RCR) | payer SELFPAY ==
[2024-12-14 00:20] VITALS: BP 161/67; PULSE 57
[2024-12-15 08:10] VITALS: BP 145/69; PULSE 60
[2024-12-20 08:20] VITALS: BP 123/62; PULSE 47
[2024-12-27 09:25] VITALS: BP 153/67; PULSE 53
[2025-01-03 08:13] VITALS: BP 157/73; PULSE 49
[2025-01-05 08:22] VITALS: BP 128/66; PULSE 55
[2025-01-10 08:47] VITALS: BP 148/69; PULSE 53
== END 2025-01-13 23:59 | disposition home or self-care (01) ==
LOC: CR 08:00
PROVIDERS: PCP Student in an Organized Health Care Education/Training Program; Visit Provider Internal Medicine Cardiovascular Disease
DX: R69 Illness, unspecified (principal)

== ENCOUNTER 2025-02-07 08:00 | Outpatient (RCR) | payer SELFPAY ==
[2025-01-14 00:10] VITALS: BP 148/69; PULSE 53
[2025-01-17 08:14] VITALS: BP 138/67; PULSE 52
[2025-01-19 08:16] VITALS: BP 152/67; PULSE 63
[2025-01-24 08:14] VITALS: BP 151/67; PULSE 52
[2025-01-31 08:24] VITALS: BP 152/75; PULSE 61
[2025-02-02 08:18] VITALS: BP 134/72; PULSE 55
[2025-02-07 08:39] VITALS: BP 147/71; PULSE 62
== END 2025-02-12 23:59 | disposition home or self-care (01) ==
LOC: CR 08:00
PROVIDERS: PCP Student in an Organized Health Care Education/Training Program; Visit Provider Internal Medicine Cardiovascular Disease
DX: R69 Illness, unspecified (principal)

== ENCOUNTER 2025-03-14 08:00 | Outpatient (RCR) | payer SELFPAY ==
[2025-02-13 00:16] VITALS: BP 147/71; PULSE 62
[2025-02-14 08:14] VITALS: BP 160/68; PULSE 55
[2025-02-21 08:43] VITALS: BP 160/79; PULSE 62
[2025-02-28 08:20] VITALS: BP 160/66; PULSE 44
[2025-03-02 08:28] VITALS: BP 144/79; PULSE 63
[2025-03-07 08:39] VITALS: BP 142/69; PULSE 59
[2025-03-14 08:44] VITALS: BP 153/65; PULSE 50
== END 2025-03-15 23:59 | disposition home or self-care (01) ==
LOC: CR 08:00
PROVIDERS: PCP Student in an Organized Health Care Education/Training Program; Visit Provider Internal Medicine Cardiovascular Disease
DX: R69 Illness, unspecified (principal)